=== PATIENT | female | born 1960 | race Caucasian/White ===

== ENCOUNTER 2023-02-11 11:20 | Outpatient (OUT) | payer OTHER, BC, SELFPAY ==
--- NOTE | 2023-02-11 11:23 | MM_ITS ---
Patient: BRITNEY TURNER Exam Date: 02/11/2023 : 1960 Gender:F Ordering : CHENCHO JohnJared ABEL FAMILY N Admission #: [id number] Family : Order #: [id number] CLICK HERE TO VIEW EXAM RADIOLOGY REPORT PROCEDURE: MM TOMOSYNTHESIS SCREENING BI COMPARISON: MG MAMM SCREEN 3D GRAYSON CAD, 02/05/2022. MG MAMM GRAYSON SCRN W CAD DIG, 02/05/2021. MG MAMM GRAYSON SCRN W CAD DIG, 01/06/2020. MG MAMM GRAYSON SCRN W CAD DIG, 01/03/2019. INDICATIONS: Screening Calculator Name NCI Breast Cancer Risk Assessment Tool 5 Year Breast Cancer Risk Not Reported. Lifetime Breast Cancer Risk Not Reported. Personal Breast Cancer No Personal Ovarian Cancer No Treatments None Family Cancers None LOCATION: The [facility] BREAST COMPOSITION: Heterogeneously dense,which may obscure small masses. FINDINGS: DIAGNOSTIC CATEGORY 2--BENIGN FINDING: RIGHT BREAST: No significant suspicious finding. Scattered benign-appearing lymph nodes are present. No significant change has occurred. LEFT BREAST: No significant suspicious finding. No significant change has occurred. RECOMMENDATIONS: ROUTINE MAMMOGRAM AND CLINICAL EVALUATION IN 12 MONTHS. PLEASE NOTE: A NORMAL MAMMOGRAM DOES NOT EXCLUDE THE POSSIBILITY OF BREAST CANCER. A CLINICALLY SUSPICIOUS PALPABLE LUMP SHOULD BE BIOPSIED. Dictated by: Reji Dimas M.D. on 02/12/2023 at 15:41 Approved by: Reji Dimas M.D. on 02/12/2023 at 15:44
== END 2023-02-11 11:21 | disposition home or self-care (01) ==
LOC: MAMMO 11:20
PROVIDERS: PCP Nurse Practitioner Family; Visit Provider Nurse Practitioner Family
DX: Z12.31 Encounter for screening mammogram for malignant neoplasm of breast (principal)
CPT/HCPCS: 77063; 77067

== ENCOUNTER 2024-02-23 11:18 | Outpatient (OUT) | payer OTHER, BC, SELFPAY ==
--- NOTE | 2024-02-23 11:24 | MM_ITS ---
Patient Name: BRITNEY TURNER MR#: [id number] : 1960 Exam Date: 02/23/2024 Ordering Doctor: CHENCHO Galicia RADIOLOGY REPORT PROCEDURE: MM TOMOSYNTHESIS SCREENING BI COMPARISON: MG MAMM SCREEN 3D GRAYSON CAD, 02/05/2022. MM TOMOSYNTHESIS SCREENING BI, 02/11/2023. INDICATIONS: Screening Calculator Name NCI Breast Cancer Risk Assessment Tool 5 Year Breast Cancer Risk Not Reported. Lifetime Breast Cancer Risk Not Reported. Personal Breast Cancer No Personal Ovarian Cancer No Treatments None Family Cancers None LOCATION: [facility] BREAST COMPOSITION: The breasts are heterogeneously dense,which may obscure small masses. FINDINGS: DIAGNOSTIC CATEGORY 2--BENIGN FINDING. NO CHANGE FROM COMPARISON. Scattered benign-appearing nodules are present. Scattered benign-appearing calcifications are present. Scattered benign-appearing lymph nodes are present. RIGHT BREAST: No significant suspicious finding. LEFT BREAST: No significant suspicious finding. RECOMMENDATIONS: ROUTINE MAMMOGRAM AND CLINICAL EVALUATION IN 12 MONTHS. PLEASE NOTE: A NORMAL MAMMOGRAM DOES NOT EXCLUDE THE POSSIBILITY OF BREAST CANCER. A CLINICALLY SUSPICIOUS PALPABLE LUMP SHOULD BE BIOPSIED. Dictated by: Ashvin Mora MD on 02/23/2024 at 14:08 Approved by: Ashvin Mora MD on 02/23/2024 at 14:10
== END 2024-02-23 11:19 | disposition home or self-care (01) ==
LOC: MAMMO 11:19
PROVIDERS: PCP Nurse Practitioner Family; Visit Provider Nurse Practitioner Family
DX: Z12.31 Encounter for screening mammogram for malignant neoplasm of breast (principal)
CPT/HCPCS: 77063; 77067

== ENCOUNTER 2025-02-24 10:44 | Outpatient (OUT) | payer BC, OTHER, SELFPAY ==
--- NOTE | 2025-02-24 10:54 | MM_ITS ---
Patient Name: BRITNEY TURNER MR#: [id number] : 1960 Exam Date: 02/24/2025 Ordering Doctor: CHENCHO Galicia RADIOLOGY REPORT PROCEDURE: MM TOMOSYNTHESIS SCREENING BI COMPARISON: MM TOMOSYNTHESIS SCREENING BI, 02/23/2024. MM TOMOSYNTHESIS SCREENING BI, 02/11/2023. MG MAMM SCREEN 3D GRAYSON CAD, 02/05/2022. MG MAMM GRAYSON SCRN W CAD DIG, 01/03/2019. INDICATIONS: Screening Calculator Name NCI Breast Cancer Risk Assessment Tool 5 Year Breast Cancer Risk Not Reported. Lifetime Breast Cancer Risk Not Reported. Personal Breast Cancer No Personal Ovarian Cancer No Treatments None Family Cancers None LOCATION: [facility] BREAST COMPOSITION: The breasts are heterogeneously dense, which may obscure small masses. FINDINGS: RIGHT BREAST: No significant suspicious finding. LEFT BREAST: No significant suspicious finding. DIAGNOSTIC CATEGORY 1--NEGATIVE. RECOMMENDATIONS: ROUTINE MAMMOGRAM AND CLINICAL EVALUATION IN 12 MONTHS. PLEASE NOTE: A NORMAL MAMMOGRAM DOES NOT EXCLUDE THE POSSIBILITY OF BREAST CANCER. A CLINICALLY SUSPICIOUS PALPABLE LUMP SHOULD BE BIOPSIED. Dictated by: Isaak Mae MD on 02/24/2025 at 13:42 Approved by: Isaak Mae MD on 02/24/2025 at 13:45
--- OUTSIDE RECORDS SUMMARY | 2025-02-24 10:55 | XMS_ITS | CCD ---
Author Organization [facility] Care Team Providers Care Traffic Representative Name Role Phone Deo Dean DO Primary Care Provider DAMON Anguiano Referring UnavailDEO Perez Primary Care Unavailable DAMON JONES Admitting UnavailDAMON Segovia Attending UnavailDEO Perez Primary Care Unavailable Deo Dean Unavailable Nick Matthews Unavailable DR TYRELL DIMAS Consulting Unavailable JERMAINE, DR SAMUEL Attending Unavailable JERMAINE, DR SAMUEL Admitting Unavailable JERMAINE, DR SAMUEL Consulting Unavailable DO Deo Dean Primary Care Provider [facility] Attending Provider DO Deo Dean Primary Care Provider [facility] Attending Provider [phone] [facility] Admitting Unavailable [facility] Attending Unavailable Deo Dean Primary Care Unavailable DO Deo Dean Primary Care Provider [facility] Attending Provider [phone] Quentin Koehler MD Primary Care Provider QUENTIN KOEHLER Primary Care Unavailable QUENTIN KOEHLER Attending Unavailable QUENTIN KOEHLER Attending Unavailable MIRTHA ROMAN Attending Unavailable MIRTHA ROMAN Attending Unavailable MIRTHA ROMAN Attending Unavailable QUENTIN KOEHLER Attending Unavailable MIRTHA ROMAN Attending Unavailable Deo Dean DO Primary Care Unavailab Gi HAND, Tyrone Pandya Attending Unavailab Gi HAND, Tyrone Pandya Attending Unavailab Deo Kelsey DO Primary Care Unavailab Rogerio HAND, Quentin Givens Primary [facility] Unavailab miladis Aguilera MD, Tyrone Pandya Attending Unavailab Deo Kelsey DO Primary Care Unavailab miladis Aguilera MD, Tyrone Pandya Attending Unavailab Deo Kelsey DO [facility] Unavailab miladis Aguilera MD, Tyrone Pandya Attending Unavailab miladis Aguilera MD, Tyrone Pandya Attending Unavailab Rogerio HAND, Karen Primary [facility] Unavailab le Nilson Orantes MD, Tyrone Pandya Attending Unavailab Deo Kelsey DO Primary [facility] Unavailab Rogerio HAND, [facility] Primary [facility] Unavailab le Nilson Orantes MD, Tyrone Pandya Attending Unavailab Deo Kelsey DO Primary [facility] Unavailab le Nilson Orantes MD, Tyrone Pandya Attending Unavailab le Nilson Orantes MD, Tyrone Pandya Attending Unavailab [facility] Nilson Orantes MD, Tyrone Pandya Attending Unavailab Jeronimo Ramsay MD Consulting Unavailable Deo Dean DO [facility] Unavailab le Nilson Orantes MD, Tyrone Pandya Consulting Unavailab le Allergies Allergy Classification Reported Allergen(s) Allergy Type Date of Onset Reaction(s) Facility (20 sources) Aluminum aspirin; Translations: [ASPIRIN] Drug Allergy 8 Anaphylaxis 3D Forms (20 sources) ASA Propensity to adverse reactions anaphylaxis [place] Other (6 sources) NSAIDS (Non-Steroidal Anti-Inflamma; Translations: [NSAIDS (Non-Steroidal Anti-Inflamma] Allergy to substance 8 Swelling of Lip/Tongue/Thr oat [facility] (1 source) Aspirin Drug Allergy 3 [facility] Repository Medications Current Medications Medication Drug Class(es) Dates Sig (Normalized) Sig (Original) acetaminophen 325 mg / oxyCODONE hydrochloride 5 mg oral tablet (3 sources) Opioid Agonist Start: 09-30-2021 End: 10-07-2021 oxyCODONE-acetamin ophen (PERCOCET) 5-325 MG per tablet Indications: Encounter for cosmetic surgery Take 1 tablet by mouth every 6 hours as needed for Pain for up to 7 days. Intended supply: 7 days. Take lowest dose possible to manage pain 28 tablet 0 09/30/2021 10/07/2021 Active Start: 09-30-2021 End: 09-30-2021 oxyCODONE-acetaminophen (PER COCET) 5-325 MG per tablet 2 tablet [id number] 200 actuat albuterol 0.09 mg/actuat metered dose inhaler (20 sources) beta2-Adrenergic Agonist Start: 08-24-2024 take 1 puff(s) by inhalation every four hours for wheezing albuterol HFA 90 mcg/act inhaler Indications: Dyspnea, unspecified type Inhale 1 puff every 4 (four) hours if needed for wheezing or shortness of breath 18 g 3 08/24/2024 Active Start: 02-10-2024 take 1 puff(s) by in halation every four hours as needed Albuterol Sulfate Active 1 PUFF INHALATION Every 4 hours February 10, 2024 12:00am FreeTextSi puff as needed Inhalation every 4 hrs; Note: Source Status: Taking; Refills: 3; Provider: Jermaine Hooker Start: 11-05-2022 take 1 puff(s) by in halation every four hours as needed Albuterol Sulfate HFA 108 (90 Base) MCG/ACT 1 puff as needed Inhalation every 4 hrs Oct, Active Start: 11-05-2022 take 1 puff(s) by in halation every four hours as needed Albuterol Sulfate HFA 108 (90 Base) MCG/ACT 1 puff as needed Inhalation every 4 hrs Oct, Active Start: 11-05-2022 End: 08-24-2024 take 1 puff(s) by mouth every four hours albuterol HFA 90 mcg/act inhaler inhale 1 puff by mouth and INTO THE LUNGS every 4 hours if needed 11/05/2022 08/24/2024 Discontinued (Reorder) albuterol 0.833 mg/ml / ipratropium bromide 0.167 mg/ml inhalation solution (1 source) Anticholinergic, beta2-Adrenergic Agonist Start: 09-30-2021 End: 09-30-2021 ipratropium-albuterol (DUONEB) nebulizer solution 1 ampule {1 (ascorbic acid 7540 MG / polyethylene glycol 3350 10510 MG / potassium chloride 1200 MG / sodium ascorbate 58113 MG / sodium chloride 3200 MG Powder for Oral Solution) / 1 (polyethylene glycol 3350 [id number] MG / potassium chloride 1000 MG / sodium chloride 2000 MG / sodium sulfate 9000 MG Powder for Oral Solution) } Pack [Plenvu] (5 sources) Osmotic Laxative, Vitamin C Start: 10-04-2021 Plenvu 140 GM dose 1 pouch at 4pm, dose 2 pouch A & B at 11pm Orally BID for 1 days BIN:[id number] PCN: [id number] GROUP:[id number] ID:[id number] Sep, Active busPIRone hydrochloride 10 mg oral tablet (15 sources) Start: 11-14-2024 take 1 tablet by mouth in the morning busPIRone (Buspar) 10 MG tablet Indications: Anxiety Take 1 tablet (10 mg) by mouth in the morning and 1 tablet (10 mg) before bedtime. 60 tablet 1 11/14/2024 Active Start: 03-01-2024 take 1 tablet by ravi th in the morning busPIRone (Buspar) 10 MG tablet Indications: Anxiety Take 1 tablet (10 mg) by mouth in the morning and 1 tablet (10 mg) before bedtime. 60 tablet 1 03/01/2024 Active calcium chloride 0.0014 meq/ml / potassium chloride 0.004 meq/ml / sodium chloride 0.103 meq/ml / sodium lactate 0.028 meq/ml injectable solution (1 source) Start: 09-30-2021 lactated ringers infusion cephalexin 500 mg oral capsule (1 source) Cephalosporin Antibacterial Start: 09-30-2021 End: 10-05-2021 take 1 capsule by mouth three times daily, then take 1 capsule by mouth three times daily cephALEXin (KEFLEX) 500 MG capsule Take 1 capsule by mouth 3 times daily for 15 doses Take 1 tablet 3 times a day for 5 days 15 capsule 0 09/30/2021 10/05/2021 Active 1 ml diphenhydrAMINE hydrochloride 50 mg/ml cartridge (1 source) Histamine-1 Receptor Antagonist Start: 09-30-2021 End: 09-30-2021 diphenhydrAMINE (BENADRYL) injection 12.5 mg Fluticasone Furoate 27.5 MCG/SPRAY (6 sources) Start: 06-16-2022 Fluticasone Furoate 27.5 MCG/SPRAY 2 sprays (1 spray in each nostril) Nasally Once a day for 30 day(s) Jun, Active 1 ml HYDROmorphone hydrochloride 1 mg/ml cartridge (1 source) Opioid Agonist Start: 09-30-2021 HYDROmorphone (DILAUDID) injection 0.5 mg labetalol (NORMODYNE;TRANDATE) injection syringe 10 mg (1 source) Start: 09-30-2021 labetalol (NORMODYNE;TRANDATE) injection syringe 10 mg levoFLOXacin 500 mg oral tablet (2 sources) Quinolone Antimicrobial Start: 06-03-2021 take 1 tablet by mouth every twenty-fou r hours Levaquin 500 MG 1 tablet Orally Once a day for 14 days May, Active 10 ml lidocaine hydrochloride 10 mg/ml injection (1 source) Antiarrhythmic, Amide Local Anesthetic Start: 09-30-2021 End: 09-30-2021 lidocaine PF 1 % injection 1 mL meperidine hydrochloride 50 mg/ml injectable solution (1 source) Opioid Agonist Start: 09-30-2021 meperidine (DEMEROL) injection 12.5 mg methylPREDNISolone (20 sources) Corticosteroid Start: 11-28-2024 End: 12-05-2024 methylPREDNISolone (Medrol Dospak) 4 MG tablets Indications: Poison cathy dermatitis Follow schedule on package instructions 21 tablet 11/28/2024 12/05/2024 Active Start: 12-20-2021 Medrol 4 MG as directed Orally Dec, Active Start: 03-31-2018 SOLU-MEDROL 41 - 125 mg Mar, 125 mg Start: 01-10-2013 SOLU-MEDROL 41 - 125 mg Jan, 125 mg 2 ml midazolam 1 mg/ml injection (1 source) Benzodiazepine Start: 09-30-2021 End: 09-30-2021 midazolam PF (VERSED) injection 2 mg 1 ml morphine sulfate 2 mg/ml cartridge (1 source) Opioid Agonist Start: 09-30-2021 morphine (PF) injection 2 mg PARoxetine hydrochloride 20 mg oral tablet (20 sources) Serotonin Reuptake Inhibitor Start: 03-01-2024 End: 08-12-2025 take 1 tablet by mouth in the morning PARoxetine (Paxil) 20 MG tablet Indications: Anxiety Take 1 tablet (20 mg) by mouth in the morning. 90 tablet 3 08/12/2024 08/12/2025 Active Start: 02-10-2024 End: 02-29-2024 take 1 tablet by mouth once daily in the morning Paroxetine Hcl Discontinued 10 MG PO Daily February 10, 2024 12:00am February 29, 2024 12:41pm FreeText[employer] tablet in the morning Orally Once a day; Note: Source Status: Continue; Provider: Jermaine Hooker Start: 02-05-2024 End: 03-01-2024 take 2 tablets by mouth in the morning PARoxetine (Paxil) 10 MG tablet Indications: Anxiety Take 2 tablets (20 mg) by mouth in the morning. 30 tablet 1 02/05/2024 03/01/2024 Discontinued Start: 10-24-2021 take 20 mg by mouth once daily Paroxetine Hcl Active 20 MG PO Daily October 24, 2021 12:00am Start: 07-29-2021 take 1 tablet by ravi th once daily in the morning PARoxetine (PAXIL) 20 MG tablet take 1 tablet by mouth every morning 0 07/29/2021 Active Start: 04-27-2014 take 0.5 tablet by m outh once daily Paxil 20 MG 1/2 tablet Orally Once a day Apr, Active Start: 04-27-2014 End: 10-24-2021 take 1 tablet by mouth once daily in the evening Paroxetine Hcl (Paxil) 10 mg Tablet Discontinued 10 MG PO Every evening April 22, 2018 12:00am October 24, 2021 8:40am 1 ml promethazine hydrochloride 25 mg/ml injection (1 source) Phenothiazine Start: 09-30-2021 promethazine ( PHENERGAN) injection 6.25 mg 5 ml sodium chloride 9 mg/ml injection (6 sources) Start: 09-30-2021 sodium chlorid e flush 0.9 % injection 5-40 mL Start: 09-30-2021 sodium chlorid e flush 0.9 % injection 10 mL Start: 09-30-2021 0.9 % sodium c hloride infusion Start: 09-30-2021 sodium chlorid e flush 0.9 % injection 10 mL SUMAtriptan 100 mg oral tablet (20 sources) Serotonin-1b and Serotonin-1d Receptor Agonist Start: 02-10-2024 End: 03-01-2024 SUMAtriptan (Imitrex) 100 MG tablet 02/10/2024 03/01/2024 Discontinued (Side effects) Start: 04-17-2016 Imitrex 100 mg 1 tablet as needed Orally prn headache PRN Apr, Active Completed/Discontinued Medications Medication Drug Class(es) Dates Sig (Normalized) Sig (Original) aprepitant 40 mg oral capsule (1 source) Substance P/Neurokinin-1 Receptor Antagonist Start: 09-30-2021 End: 09-30-2021 aprepitant (EMEND) 40 MG capsule atorvastatin 40 mg oral tablet (16 sources) HMG-CoA Reductase Inhibitor Start: 07-19-2021 End: 02-29-2024 take 40 mg by mouth once daily Atorvastatin Discontinued 40 MG PO Daily October 24, 2021 12:00am February 29, 2024 12:41pm clopidogrel 75 mg oral tablet (16 sources) P2Y12 Platelet Inhibitor Start: 07-19-2021 End: 02-29-2024 take 75 mg by mouth once daily Clopidogrel Discontinued 75 MG PO Daily October 24, 2021 12:00am February 29, 2024 12:42pm 2 ml famotidine 10 mg/ml injection (1 source) Histamine-2 Receptor Antagonist Start: 09-30-2021 End: 09-30-2021 famotidine (PEPCID) 20 MG/2ML injection fluticasone furoate 0.0275 mg/actuat metered dose nasal spray (17 sources) Corticosteroid Start: 02-10-2024 End: 02-29-2024 take 2 spray(s) nasal route once daily, then take 1 spray(s) nasal route once daily Fluticasone Furoate Discontinued 2 SPRAY INTRANASAL Daily February 10, 2024 12:00am February 29, 2024 12:42pm FreeText[employer] sprays (1 spray in each nostril) Nasally Once a day; Note: Source Status: Taking; Refills: 1; Provider: Jermaine Hooker Start: 09-07-2023 End: 09-06-2024 take 2 spray(s) nasal route once daily fluticasone (Flonase) 50 MCG/ACT nasal spray Indications: Dysfunction of left eustachian tube Administer 2 sprays into each nostril Daily Shake gently. Before first use, prime pump. After use, clean tip and replace cap. 16 g 2 09/07/2023 Active 2 ml ondansetron 2 mg/ml injection (2 sources) Serotonin-3 Receptor Antagonist Start: 09-30-2021 End: 09-30-2021 ondansetron (ZOFRAN) 4 MG/2ML injection Start: 09-30-2021 End: 09-30-2021 ondansetron (ZOFRAN) injecti on 4 mg predniSONE 20 mg oral tablet (1 source) Start: 12-24-2023 End: 02-29-2024 Prednisone Discontinued 20 M G PO Daily December 24, 2023 12:00am February 29, 2024 12:42pm BID x 5 DAYS, QD X 5 DAYS rimegepant 75 mg disintegrat ing oral tablet (20 sources) Start: 02-10-2024 End: 10-25-2024 Rimegepant Sulfate 75 MG tablet dispersible 1 tablet 02/10/2024 10/25/2024 Discontinued (Therapy completed) Start: 11-07-2021 Nurtec 75 MG 1 tablet on the tongue and allow to dissolve Orally for 30 day(s) PRN Oct, Active 72 hr scopolamine 0.0139 mg/hr transdermal system (1 source) Anticholinergic Start: 09-30-2021 End: 09-30-2021 scopolamine (TRANSDERM-SCOP) 1 MG/3DAYS transdermal patch vitamin b6 100 mg oral tablet (2 sources) End: 09-30-2021 take 1 tablet by mouth once daily vitamin B-6 (PYRIDOXINE) 100 MG tablet Take 100 mg by mouth daily 0 09/30/2021 Discontinued (Therapy completed) Problems Active Problems Problem Classification Problem Date Documented Da te Episodic/Chronic Allergic reactions (2 sources) Contact dermatitis due to poison cathy; Translations: [Allergic contact dermatitis due to plants, except food] 11-28-2024 Episodic Anxiety disorders (20 sources) Anxiety; Translations: [Anxiety disorder, unspecified] Onset: 12-16-2021 Resolved: 12-16-2021 Chronic Diabetes mellitus without complication (20 sources) Hyperglycemia; Translations: [Hyperglycemia, unspecified] 02-10-2024 Episodic Diseases of white blood cells (20 sources) Leukopenia; Translations: [Decreased white blood cell count, unspecified] Onset: 05-14-2023 Chronic Disorders of lipid metabolism (20 sources) Hyperlipidemia; Translations: [Hyperlipidemia, unspecified] Onset: 03-01-2024 Chronic Gastrointestinal hemorrhage (14 sources) Hematochezia; Translations: [Melena] Onset: 09-27-2021 Resolved: 09-27-2021 Episodic Headache; including migraine (20 sources) Migraine; Translations: [Migraine, unspecified, not intractable, without status migrainosus] Onset: 02-03-2023 02-03-2023 Chronic Mood disorders (20 sources) Major depressive disorder, single episode, unspecified; Translations: [Depression] Chronic Open wounds of extremities (4 sources) Laceration without foreign body of left little finger without damage to nail, initial encounter; Translations: [Laceration of finger] Onset: 10-18-2024 10-26-2024 Episodic Other ear and sense organ disorders (16 sources) Conductive hearing loss, unilateral, left ear, with unrestricted hearing on the contralateral side; Translations: [Conductive hearing loss, unilateral] Onset: 02-03-2023 02-03-2023 Chronic Other ear and sense organ disorders (1 source) Other specified disorders of left ear Episodic Other injuries and conditions due to external causes (1 source) Laceration - injury Onset: 10-18-2024 Episodic Other nervous system disorders (20 sources) Carpal tunnel syndrome; Translations: [Carpal tunnel syndrome, unspecified upper limb] Onset: 02-03-2023 02-03-2023 Chronic Other nervous system disorders (19 sources) Numbness; Translations: [Anesthesia of skin] Episodic Other nutritional; endocrine; and metabolic disorders (2 sources) Abnormal weight loss; Translations: [Loss of weight] Episodic Other screening for suspected conditions (not mental disorders or infectious disease) (5 sources) Abnormal findings on diagnostic imaging of skull and head, not elsewhere classified; Translations: [Encounter for screening mammogram for malignant neoplasm of breast] Onset: 06-19-2021 Resolved: 06-19-2021 Episodic Other skin disorders (20 sources) Comedone; Translations: [Acne vulgaris] Episodic Other upper respiratory disease (15 sources) Breath smells unpleasant; Translations: [Halitosis] Episodic Other upper respiratory infections (20 sources) Sinusitis; Translations: [Chronic sinusitis, unspecified] Onset: 06-03-2021 Resolved: 06-03-2021 Chronic Otitis media and related conditions (16 sources) Chronic serous otitis media of left ear; Translations: [Chronic serous otitis media, left ear] Onset: 02-03-2023 02-03-2023 Chronic Residual codes; unclassified (15 sources) Procedure related finding; Translations: [Encounter for cosmetic surgery] Episodic Transient cerebral ischemia (18 sources) Transient cerebral ischemia; Translations: [Transient cerebral ischemic attack, unspecified] Onset: 08-26-2021 Resolved: 01-14-2022 Chronic Viral infection (20 sources) Herpes simplex; Translations: [Herpesviral infection, unspecified] Episodic Past or Other Problems Problem Classification Problem Date Documented Date Episodic/Chronic Conditions associated with dizziness or vertigo (1 source) Dizziness and giddiness; Translations: [Dizziness R42] Onset: 05-09-2021 Resolved: 05-09-2021 Episodic Intracranial injury (1 source) Personal history of traumatic brain injury; Translations: [History of concussion Z87.820] Onset: 05-09-2021 Resolved: 05-09-2021 Episodic Mood disorders (12 sources) Mood disorders Onset: 04-07-2024 04-07-2024 Other acquired deformities (16 sources) Finding of nasal deformity; Translations: [Acquired deformity of nose] Onset: 02-03-2023 02-03-2023 Episodic Other connective tissue disease (16 sources) Peripheral muscle fatigue; Translations: [Other symptoms and signs involving the musculoskeletal system] Onset: 05-14-2023 05-14-2023 Episodic Other lower respiratory disease (17 sources) Dyspnea; Translations: [Dyspnea, unspecified] Onset: 05-14-2023 05-14-2023 Episodic Other nervous system disorders (4 sources) Anesthesia of skin; Translations: [Numbness on left side R20.0] Onset: 05-09-2021 Resolved: 08-26-2021 Episodic Other nervous system disorders (16 sources) Paresthesia; Translations: [Paresthesia of skin] Onset: 02-03-2023 02-03-2023 Episodic Other nutritional; endocrine; and metabolic disorders (20 sources) Unintentional weight loss; Translations: [Abnormal weight loss] Onset: 03-01-2024 02-29-2024 Episodic Other nutritional; endocrine; and metabolic disorders (12 sources) Weight loss; Translations: [Abnormal weight loss] Onset: 05-14-2023 05-14-2023 Episodic Other nutritional; endocrine; and metabolic disorders (6 sources) Weight decreased; Translations: [Abnormal weight loss] Onset: 05-14-2023 05-14-2023 Episodic Residual codes; unclassified (3 sources) Patient encounter status; Translations: [Encounter for cosmetic surgery] Episodic Residual codes; unclassified (18 sources) History of hysterectomy for benign disease; Translations: [Acquired absence of both cervix and uterus] Onset: 02-03-2023 02-03-2023 Episodic Results Test Name Value Interpretation Reference Range Facility CBC w/ Diffon 12-29-2024 Erythrocyte distribution width (RBC) [Ratio] 12.2 % Normal 11.6-14.8 [facility] Comment on above: Performed By: #### . Manual Diff #### [place] [address] Hematocrit (Bld) [Volume fraction] 39.1 % Normal 36.0-46.0 [facility] Comment on above: Performed By: #### . Manual Diff #### [place] [address] Hemoglobin (Bld) [Mass/Vol] 13.3 g/dL Normal 12.0-16.0 [facility] Comment on above: Performed By: #### . Manual Diff #### [place] [id number] MCH (RBC) [Entitic mass] 29.9 pg Normal 27.0-35.0 [facility] Comment on above: Performed By: #### . Manual Diff #### [place] [id number] MCHC 34.1 % Normal 31.0-37.0 [facility] Comment on above: Performed By: #### . Manual Diff #### [place] [id number] MCV (RBC) [Entitic vol] 87.7 fL Normal 80.0-100.0 [facility] Comment on above: Performed By: #### . Manual Diff #### [facility] [address] [place] [address] [id number] Platelet 264 x10*3/mcL Normal 150-450 [facility] Comment on above: Performed By: #### . Manual Diff #### [facility] [address] [place] [address] [id number] Platelet mean volume (Bld) [Entitic vol] 7.6 fL Normal 6.7-10.6 [facility] Comment on above: Performed By: #### . Manual Diff #### [facility] [address] [place] [address] 27776 RBC 4.46 x10*6/mcL Normal 3.80-5.20 [facility] Comment on above: Performed By: #### . Manual Diff #### [facility] [address] [place] [address] 70100 WBC 3.2 x10*3/mcL Low 4.5-11.0 [facility] Comment on above: Performed By: #### . Manual Diff #### [facility] [address] [place] [address] [id number] Diff Autoon 12-29-2024 Baso Absolute 0.0 x10*3/mcL Normal 0.0-0.2 [facility] Comment on above: Performed By: #### C BC #### [facility] (UNKNOWN) [address] [place] [address] Basophils/100 WBC (Bld) 0.6 % Normal 0.0-1.5 [facility] Comment on above: Performed By: #### C BC #### [facility] (UNKNOWN) [address] [place] [address] Eos Absolute 0.0 x10*3/mcL Normal 0.0-0.4 [facility] Comment on above: Performed By: #### C BC #### [facility] (UNKNOWN) [address] [place] [address] Eosinophils/100 WBC (Bld) 1.3 % Normal 0.0-5.4 [facility] Comment on above: Performed By: #### C BC #### [facility] (UNKNOWN) [address] [place] [address] Lymph Absolute 1.2 x10*3/mcL Normal 1.0-4.8 [facility] Comment on above: Performed By: #### C BC #### [facility] (UNKNOWN) [address] [place] [address] Lymphocytes/100 WBC (Bld) 36.4 % Normal 27.2-40.8 [facility] Comment on above: Performed By: #### C BC #### [facility] (UNKNOWN) [address] [place] [address] Hart Absolute 0.5 x10*3/mcL Normal 0.1-1.1 [facility] Comment on above: Performed By: #### C BC #### [facility] (UNKNOWN) [address] [place] [address] Monocytes/100 WBC (Bld) 14.5 % High 3.7-11.9 [facility] Comment on above: Performed By: #### C BC #### [facility] (UNKNOWN) [address] [place] [address] Neutro Absolute 1.5 x10*3/mcL Low 1.8-7.7 [facility] Comment on above: Performed By: #### C BC #### [facility] (UNKNOWN) [address] [place] [address] Neutro Auto 47.2 % Normal 47.2-70.8 [facility] Comment on above: Performed By: #### C BC #### [facility] (UNKNOWN) [address] [place] [address] Medical Oncology Office/Clin ic Noteon 12-29-2024 Medical Oncology Office/Clinic Note Chief Complaint Follow-up/reassessment , leukopenia History of Present Illness 64-year-old lady with medical history as below remarkable for history of localized melanoma in the left leg that was resected in 2008. She reports she did not need any further treatment. 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 Patient was referred to our office because of leukopenia. Per chart review we were able to retrieve 3 CBCs as below: 01/07/2020: CBC showed WBC 4.1, hemoglobin 12.7, MCV 87.2, platelets 268, ANC 1.9, ALC 1.6. 12/01/2017: CBC showed WBC 3.5, hemoglobin 12.8, MCV 88.0, platelets 278, ANC 1.4, ALC 1.4. 06/14/2022: CBC showed WBC 2.9, hemoglobin 12, MCV 86.9, platelets 248. No differential on this CBC Patient also showed me CBC from 04/19/2022 which showed WBC: 2.9, hemoglobin 12.3, platelets 241. She also showed me a CBC from 05/17/2022 with WBC 2.9, hemoglobin 11.9, platelets 252. No differential. She reports feeling well. Denies specific complaints. She denies recurrent/recent infection, night sweats, weight loss. She does not drink alcohol. No new medications. She reports she has been on Paxil for many years for anxiety and she weaned herself off this medication around 6 months ago. No history chemotherapy or radiation. Family history remarkable for mother who had breast cancer in her 50s. Patient denies any bleeding problems. She is physically active. She is not aware of any family member who has low white cell count. Interim history: Patient is here today for follow-up Accompanied by his significant other. She is feeling well. No new complaints. No fever or chills. No night sweats or weight loss. No enlarged lymph nodes. No recurrent or recent infections. Review of Systems As above, review of system is otherwise negative Physical Exam Vitals & Measurements T: 37.1 ?C (Temporal Artery) HR: 68 (Peripheral) BP: 135/62 SpO2: 99% HT: 155 cm HT: 155 cm WT: 49.4 kg WT: 49.4 kg (Dosing) BMI: 20.56 ECOG PS: 0 General: alert and oriented pleasant lady; no apparent distress HEENT: NC/AT, sclera clear, extraocular movements intact Resp: Good air entry bilateral, no wheezes Cardio: Normal S1, S2 GI: Soft, nontender Lymphs: No palpable or enlarged lymphadenopathy. Skin: no rashes or bruises on visible skin Neuro: LOGAN, No focal deficit grossly Psych: appropriate affect Assessment/Plan 64-year-old lady with: 1. Leukopenia/neutropenia : Work-up here showed no evidence of nutritional deficiency with normal iron studies, B12, folate, MMA, copper. She has positive JOSEFINA with elevated titer at 1:640. Negative rheumatoid factor. She was seen by rheumatology and was not felt to have any autoimmune disease at this point. Peripheral blood flow cytometry unremarkable. No splenomegaly on ultrasound She eventually had bone marrow biopsy which did not show signs of malignancy. Patient was seen and examined today. Labs were ordered and reviewed including CBC. Continues to have fluctuating leukopenia with borderline neutrophil count. Will continue observation. RTC 6 months Patient knows to call and notify us should he/she have any signs or symptoms of concerns. Patient verbalizes understanding and agreement with this plan. Time Spent with the Patient I have personally spent [] minutes on this date, directly related to today's patient visit, including pre and post visit work, for this date of service. Time listed does not include time spent on separately billable services. Past Medical History Ongoing JOSEFINA positive Leukopenia Historical No qualifying data Past Surgical History Brow lift Appendectomy Partial hysterectomy Allergies aspirin (Anaphylactic reaction) Family History Breast cancer: Mother. Hypertension: Mother. Health Status Family Member(s) Social History Alcohol Never Tobacco Never (less than 100 in lifetime) Use:. Medications busPIRone, 10 mg, Oral, Daily, prn Klor-Con M20 oral tablet, extended release, 20 mEq= 1 tabs, Oral, Daily, Not taking Paxil 20 mg oral tablet, 20 mg= 1 tabs, Oral, Daily potassium chloride 20 mEq oral tablet, extended release, 20 mEq= 1 tabs, Oral, Daily, Not taking Laboratory Data Baso Absolute: 0 x10 Basophil Auto: 0.6 % (12/29/24) Eos Absolute: 0 x10 Eos Auto: 1.3 % (12/29/24) Hct: 39.1 % (12/29/24) Hgb: 13.3 g/dL (12/29/24) Lymph Absolute: 1.2 x10 Lymph Auto: 36.4 % (12/29/24) Hart Absolute: 0.5 x10 Hart Auto: 14.5 % High (12/29/24) Neutro Absolute: 1.5 x10 Neutro Auto: 47.2 % (12/29/24) Platelet: 264 x10 WBC: 3.2 x10 Diagnostic Results Diagnostic Radiology No qualifying data available. Computed Tomography No qualifying data available. Interventional Radiology No qualifying data available. Mammography No qualifying data available. Magnetic Resonance Imaging No qualifying data available. Nuclear Medicine No qualifying data available. Ultrasound No qualifying data available. Electronically Signed by __ (more content not included)... Normal [facility] CBC w/ Diffon 06-28-2024 Erythrocyte distribution width (RBC) [Ratio] 12.6 % Normal 11.6-14.8 [facility] Comment on above: Performed By: #### C BC #### [facility] (UNKNOWN) [address] [place] [address] Hematocrit (Bld) [Volume fraction] 36.9 % Normal 36.0-46.0 [facility] Comment on above: Performed By: #### C BC #### [facility] (UNKNOWN) [address] [place] [address] Hemoglobin (Bld) [Mass/Vol] 12.5 g/dL Normal 12.0-16.0 [facility] Comment on above: Performed By: #### C BC #### [facility] (UNKNOWN) [address] [place] [address] MCH (RBC) [Entitic mass] 30.4 pg Normal 27.0-35.0 [facility] Comment on above: Performed By: #### C BC #### [facility] (UNKNOWN) [address] [place] [address] MCHC 33.9 % Normal 31.0-37.0 [facility] Comment on above: Performed By: #### C BC #### [facility] (UNKNOWN) [address] [place] [address] MCV (RBC) [Entitic vol] 89.8 fL Normal 80.0-100.0 [facility] Comment on above: Performed By: #### C BC #### [facility] (UNKNOWN) [address] [place] [address] Platelet 264 x10*3/mcL Normal 150-450 [facility] Comment on above: Performed By: #### C BC #### [facility] ([facility]KNOWN) [address] [place] [address] Platelet mean volume (Bld) [Entitic vol] 7.6 fL Normal 6.7-10.6 [facility] Comment on above: Performed By: #### C BC #### [facility] ([facility]KNOWN) [address] [place] [address] RBC 4.11 x10*6/mcL Normal 3.80-5.20 [facility] Comment on above: Performed By: #### C BC #### [facility] ([facility]KNOWN) [address] [place] [address] WBC 4.4 x10*3/mcL Low 4.5-11.0 [facility] Comment on above: Performed By: #### C BC #### [facility] (UNKNOWN) [address] [place] [address] Diff Autoon 06-28-2024 Baso Absolute 0.0 x10*3/mcL Normal 0.0-0.2 [facility] Comment on above: Performed By: #### C BC #### [facility] (UNKNOWN) [address] [place] [address] Basophils/100 WBC (Bld) 0.4 % Normal 0.0-1.5 [facility] Comment on above: Performed By: #### C BC #### [facility] (UNKNOWN) [address] [place] [address] Eos Absolute 0.1 x10*3/mcL Normal 0.0-0.4 [facility] Comment on above: Performed By: #### C BC #### [facility] ([facility]KNOWN) [address] [place] [address] Eosinophils/100 WBC (Bld) 1.2 % Normal 0.0-5.4 [facility] Comment on above: Performed By: #### C BC #### [facility] ([facility]KNOWN) [address] [place] [address] Lymph Absolute 1.6 x10*3/mcL Normal 1.0-4.8 [facility] Comment on above: Performed By: #### C BC #### [facility] (UNKNOWN) [address] [place] [address] Lymphocytes/100 WBC (Bld) 37.1 % Normal 27.2-40.8 [facility] Comment on above: Performed By: #### C BC #### [facility] ([facility]KNOWN) [address] [place] [address] Hart Absolute 0.5 x10*3/mcL Normal 0.1-1.1 [facility] Comment on above: Performed By: #### C BC #### [facility] (UNKNOWN) [address] [place] [address] Monocytes/100 WBC (Bld) 10.5 % Normal 3.7-11.9 [facility] Comment on above: Performed By: #### C BC #### [facility] (UNKNOWN) [address] [place] [address] Neutro Absolute 2.2 x10*3/mcL Normal 1.8-7.7 [facility] Comment on above: Performed By: #### C BC #### [facility] (UNKNOWN) [address] [place] [address] Neutro Auto 50.8 % Normal 47.2-70.8 [facility] Comment on above: Performed By: #### C BC #### [facility] (UNKNOWN) [address] [place] [address] Medical Oncology Office/Clin ic Noteon 06-28-2024 Medical Oncology Office/Clinic Note Chief Complaint Follow-up/reassessment , leukopenia History of Present Illness 63-year-old lady with medical history as below remarkable for history of localized melanoma in the left leg that was resected in 2008. She reports she did not need any further treatment. 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 Patient was referred to our office because of leukopenia. Per chart review we were able to retrieve 3 CBCs as below: 01/07/2020: CBC showed WBC 4.1, hemoglobin 12.7, MCV 87.2, platelets 268, ANC 1.9, ALC 1.6. 12/01/2017: CBC showed WBC 3.5, hemoglobin 12.8, MCV 88.0, platelets 278, ANC 1.4, ALC 1.4. 06/14/2022: CBC showed WBC 2.9, hemoglobin 12, MCV 86.9, platelets 248. No differential on this CBC Patient also showed me CBC from 04/19/2022 which showed WBC: 2.9, hemoglobin 12.3, platelets 241. She also showed me a CBC from 05/17/2022 with WBC 2.9, hemoglobin 11.9, platelets 252. No differential. She reports feeling well. Denies specific complaints. She denies recurrent/recent infection, night sweats, weight loss. She does not drink alcohol. No new medications. She reports she has been on Paxil for many years for anxiety and she weaned herself off this medication around 6 months ago. No history chemotherapy or radiation. Family history remarkable for mother who had breast cancer in her 50s. Patient denies any bleeding problems. She is physically active. She is not aware of any family member who has low white cell count. Interim history: Patient is here today for follow-up. She underwent bone marrow biopsy. 1. Normocellular bone marrow with slightly decreased but morphologically unremarkable trilineage hematopoiesis. CBC today largely unremarkable. 2. No diagnostic morphologic features of involvement by a myelodysplastic syndrome or other hematologic neoplasm. See comment. The flow cytometry study shows subtle atypical immunophenotypic features which is of doubtful clinical significance. Karyotype was unremarkable. [facility] discontinued the FISH testing since the karyotype was normal according to their pathway protocol. She is overall feeling well. Tolerated bone marrow biopsy well. No new complaints. She is accompanied by her sister today. Review of Systems As above, review of system is otherwise negative Physical Exam Vitals & Measurements T: 36 ?C (Temporal Artery) HR: 78 (Peripheral) BP: 122/80 SpO2: 97% HT: 155 cm HT: 155 cm WT: 50.6 kg (Dosing) WT: 50.6 kg WT: 50.6 kg (Dosing) BMI: 21.06 ECOG PS: 0 General: alert and oriented pleasant lady; no apparent distress HEENT: NC/AT, sclera clear, extraocular movements intact Resp: Good air entry bilateral, no wheezes Cardio: Normal S1, S2 GI: Soft, nontender Skin: no rashes or bruises on visible skin Neuro: LOGAN, No focal deficit grossly Psych: appropriate affect Assessment/Plan 62-year-old lady with what appears to be chronic fluctuating leukopenia. She has normal hemoglobin and platelet counts. Patient is asymptomatic. Work-up here showed no evidence of nutritional deficiency with normal iron studies, B12, folate, MMA, copper. She has positive JOSEFINA with elevated titer at 1:640. Negative rheumatoid factor. She was seen by rheumatology and was not felt to have any autoimmune disease at this point. Peripheral blood flow cytometry unremarkable. No splenomegaly on ultrasound She eventually had bone marrow biopsy which did not show signs of malignancy. Patient was seen today. Bone marrow biopsy was reviewed. We discussed the results of the bone marrow. No evidence malignant process was identified. CBC today largely unremarkable. RTC 6 months Patient knows to call and notify us should he/she have any signs or symptoms of concerns. Patient verbalizes understanding and agreement with this plan. Time Spent with the Patient I have personally spent [20] minutes on this date, directly related to today's patient visit, including pre and post visit work, for this date of service. Time listed does not include time spent on separately billable services. Past Medical History Ongoing JOSEFINA positive Leukopenia Historical No qualifying data Past Surgical History Brow lift Appendectomy Partial hysterectomy Allergies aspirin (Anaphylactic reaction) Family History Breast cancer: Mother. Hypertension: Mother. Health Status Family Member(s) Social History Alcohol Never Tobacco Never (less than 100 in lifetime) Use:. Medications busPIRone, 10 mg, Oral, Daily, prn Klor-Con M20 oral tablet, extended release, 20 mEq= 1 tabs, Oral, Daily, Not taking Paxil 20 mg oral tablet, 20 mg= 1 tabs, Oral, Daily potassium chloride 20 mEq oral tablet, extended release, 20 mEq= 1 tabs, Oral, Daily, Not taking Laboratory Data Baso Absolute: 0 x10 Basophil Auto: 0.4 % (06/28/24) Eos Absolute: 0.1 x10 Eos Auto: 1.2 % (06/28/24) Hct: 36.9 % (06/28/24) Hgb: 12.5 g/dL (06/28/24) Lymph Absolute: 1.6 x10 Lymph Auto: 37.1 % (06/28/24) Hart Ab (more content not included)... Normal [facility] Chrom Hem BM-Mapleon 06-14-20 24 Chr Hem Addl Info [facility] Not Reported Normal [facility] Comment on above: Performed By: #### C hromosomes, Hematologic, Bone Marrow-Ma #### [facility] [address] [place] [address] Chr Hem Band Mthd [facility] See Footnote Normal [facility] Comment on above: Result Comment: Band Resolution: 400-549 Stain Name Cells Analyzed Cells Karyograms Counted Prepared GTL 20 0 2 Total 20 0 2 Arriaga to Stain Name: GTL=G-banding; QFQ=Q-banding; DAPI=DAPI-staining; CBL=C-banding; AGNOR=Silver-staining; NON=Non-banded The sum of Cells Analyzed and Cells Counted equals the total cells examined. Performed By: #### C hromosomes, Hematologic, Bone Marrow-Ma #### [facility] [address] [place] [address] Chr Hem Intrp [facility] See Footnote Normal B [facility] Comment on above: Result Comment: No c lonal abnormality was apparent. Since this conventional chromosome study was successful, MDS, Diag FISH was cancelled per lab protocol (Abiodun R et al., AJCP, 146:86-94, 2016; [facility] MDS Algorithm: [email or web address]). This test was ordered in the context of a [facility] pathology consultation/case (#[id number]), and this result should be interpreted within the context of the pathology consultation/report. Performed By: #### C hromosomes, Hematologic, Bone Marrow-Ma #### [facility] [address] [place] [address] Chr Hem Method [facility] SEE BELOW Normal [facility] Comment on above: Result Comment: RESU LT: Culture without mitogens Performed By: #### C hromosomes, Hematologic, Bone Marrow-Ma #### [facility] [address] [place] [address] Chr Hem Ref [facility] leukopenia Normal [facility] Comment on above: Performed By: #### C hromosomes, Hematologic, Bone Marrow-Ma #### [facility] [address] [place] [address] Chr Hem Released by [facility] SEE BELOW Normal [facility] Comment on above: Result Comment: RESU LT: Alen Tejada M.D. Test Performed by: [place] [id number] Network Technician: Benedicto Joy Ph.D.; CLIA# [id number] Performed By: #### C hromosomes, Hematologic, Bone Marrow-Ma #### [facility] [address] [place] [address] Chr Hem Res Summary [facility] Normal Normal [facility] Comment on above: Performed By: #### C hromosomes, Hematologic, Bone Marrow-Ma #### [facility] [address] [place] [address] Chr Hem Rslt [facility] 46,XX[20] Normal [facility] Comment on above: Performed By: #### C hromosomes, Hematologic, Bone Marrow-Ma #### [facility] [employer] [address] [place] [address] Chr Hem Spec [facility] Bone Marrow Normal [facility] Comment on above: Performed By: #### C hromosomes, Hematologic, Bone Marrow-Ma #### [facility] [employer] [address] [place] [address] Chr Hem Src [facility] Not Reported Normal [facility] Comment on above: Performed By: #### C hromosomes, Hematologic, Bone Marrow-Ma #### [address] [address] Myelodysplastic Syndrome by Kaylen BERGERON 06-04-2024 Final Dx (MYEFL), Bone Marrow-Maple See Footnote Normal [facility] Comment on above: Result Comment: Bone marrow, flow cytometric immunophenotyping: No monotypic B-cells or increase in blasts identified. An atypical pattern of myeloid maturation is present. See comment. Comment: The significance of this flow cytometry finding is uncertain. Similar patterns have been observed in clonal myeloid processes as well as in reactive conditions. Correlation of these flow cytometry results with the bone marrow aspirate and biopsy findings, clinical history and other laboratory features is required for a definitive diagnosis. If desired, we can provide diagnostic services as part of a hematopathology consultation. Please contact the signing pathologist at if you have further questions regarding these analyses. Reviewed by: Jenni Ravi M.D., Ph.D. Performed By: #### C [id number] #### [address] [address] MDS Panel Bone Marrow-Maple Performed Normal [facility] Comment on above: Performed By: #### C [id number] #### [address] [address] Micro Desc (MYEFL), Bone Marrow-Maple See Footnote Normal [facility] Comment on above: Result Comment: A Wr xbmx-Insyav-hkqxxhm slide prepared from the flow cytometry specimen is examined. The specimen contains maturing hematopoietic precursors. No morphologic features of acute leukemia, lymphoma or a plasma cell proliferative disorder are identified. ADDITIONAL INFORMATION This test was developed using an analyte specific reagent. Its performance characteristics were determined by [facility] in a manner consistent with CLIA requirements. This test has not been cleared or approved by the U.S. Food and Drug Administration. Test Performed by: [address] [address] Network Technician: Benedicto Joy Ph.D.; CLIA# [id number] Performed By: #### C [id number] #### [facility] [address] [place] [address] Special Studies (MYEFL) Bone Marrow-Maple See Footnote Normal [facility] Comment on above: Result Comment: %Lym phs: 32% Results: Blasts: Not increased by CD45/side scatter and CD34. Myeloid maturation: HLA-DR/CD13 pattern on blasts: Abnormal CD13/CD16 pattern on maturing granulocytes: Normal CD2/CD7/CD56 expression on blasts: Normal (no expression) Additional markers tested: CD15, CD33, CD36, CD38, CD64, CD117. B-cells: No monotypic; normal expression pattern of CD19, CD10, surface kappa and lambda. T-cells/NK-cells: No aberrant phenotype by CD3 and CD16. Quality assessment: Specimen received within validated guidelines. Performed By: #### C [id number] #### [facility] [address] [place] [address] .Check Order for RFLX Bill O NLYon 06-02-2024 Order Checked for RFLX Bill Only? Yes Normal [facility] Comment on above: Performed By: #### C BC #### [facility] (UNKNOWN) [address] [place] [address] Addendum Reporton 06-02-2024 Addendum Report Missing Attachment Chartable Reference Lab Reports Can be viewed in source system ADD Pathologist Requested Consult Comment by Dr. Tavo Parker: The above consultation report was reviewed. I essentially concur with the diagnosis given. Addendum Discussion [facility], #[id number] Date: 06/14/2024 Final Diagnosis: Peripheral blood, bone marrow aspirate, biopsy and clot sections ([id number]; 06/02/2024): 1. Normocellular bone marrow with slightly decreased but morphologically unremarkable trilineage hematopoiesis. 2. No diagnostic morphologic features of involvement by a myelodysplastic syndrome or other hematologic neoplasm. See comment. COMMENT The flow cytometry study shows subtle atypical immunophenotypic features which is of doubtful clinical significance. Correlation with the clinical findings, history, and pertinent laboratory studies, including pending cytogenetic and FISH analysis, is recommended. MICROSCOPIC DESCRIPTION Peripheral Blood: By report--CBC (dated 06/02/2024): Hgb 12.5 g/dL; RBC 4.07 x 10(12)/L; MCV 90.3 fL; WBC 3.8 x 10 (9)/L; PLT 249 x 10(9)/L. Peripheral blood WBC differential (%): Neutrophils 54; lymphocytes 38; monocytes 5; eosinophils 2; metamyelocytes 1. Peripheral Smear: .No cytologic abnormalities. Bone Marrow Aspirate/Touch Imprint/Biopsy/Clot: Bone marrow differential (500-cell/touch preparation): Neutrophils (segs and bands) 47; metamyelocytes 7; myelocytes 17; eosinophils and precursors 1; normoblasts 20; monocytes 2; lymphocytes 6. Aspirate/Touch Imprint quality: Cellular. Biopsy and Clot quality: The biopsy is adequate. The clot contains occasional small spicules. M:E ratio: 4:1. Cellularity: Normal, 30%. Erythroid precursors: Normal quantity. Normal morphology. Myeloid precursors: Normal quantity. Normal morphology. No increase in blasts. Megakaryocytes: Normal quantity. Normal morphology. No clusters. Lymphocytes: No abnormal infiltrates. Plasma cells: Not increased. ANCILLARY STUDIES Iron stain, bone marrow aspirate and clot, submitted slides: Storage iron is present. No ring sideroblasts seen. Reticulin stain, bone marrow biopsy, submitted slides: No increase in reticulin fibrosis. Immunohistochemistry, bone marrow biopsy, submitted slides, antibodies to CD3, CD5, CD20, CD34, CD138: There are no abnormal infiltrates of CD3-positive T-cells or ER90-rjuxsrpm B-cells. The B-cells do not express CD5. IB89-dhnzdzxy blasts are not increased (<5%). EJ339-jucgnjtx plasma cells number <5%. Flow cytometric immunophenotyping, bone marrow aspirate, performed at [facility] in [place], [place] ([id number]; 06/02/2024): Blasts: Not increased by CD45/side scatter and CD34. Myeloid maturation: HLA-DR/CD13 pattern on blasts: Abnormal CD13/CD16 pattern on maturing granulocytes: Normal CD2/CD7/CD56 expression on blasts: Normal (no expression) Additional markers tested: CD15, CD33, CD36, CD38, CD64, CD117. B-cells: No monotypic; normal expression pattern of CD19, CD10, surface kappa and lambda. T-cells/NK-cells: No aberrant phenotype by CD3 and CD16. Cytogenetic analysis, bone marrow aspirate, performed at [facility] in [place], [place] ([id number]; 06/02/2024): Pending at time of report; results will be reported separately. FISH analysis for MDSDF, bone marrow aspirate, performed at [facility] in [place], [place] ([id number]; 06/02/2024): Pending at time of report; results will be reported separately. A comprehensive consult with review of records that included clinical notes and laboratory results was performed to assist in the diagnostic assessment of the case. [id number] ONAL T-[id number] ONAL T-[id number] ONAL [id number] IONAL P3-03022CYUQOPZTAVNIZT IONAL M-08744ZTSLIJHGHLWVSRW ONAL P3-64653HXORMFMXXQLIYF IONAL T-[id number] ONAL P3-15517WOZVVLGLOSSSOX IONAL T-[id number] ONAL D6-67673INYEECOPWPPFPC IONAL M-56437BXSXWZOTLTJTBLX ONAL M-45861RWHCFIDALXBHHIU ONAL P1-5R314JAQEAMGOGPNUAN IONAL M-64422ZAPDBBNHLIJGSVD ONAL P3-94828OHKSEORSXSGWJM IONAL P2-78721OLENHZSXUQFWLL IONAL Tavo Parker MD PhD (Electronically signed by) Verified: 06/14/24 16:[address] [facility] Comment on above: Performed By: #### A R #### [facility] (DEFAULT) [address] [place] [address] Bone Marrow Reporton 024 Bone Marrow Report Missing Attachment Chartable Reference Lab Reports Can be viewed in source system Clinical Information Preoperative Diagnosis: Leukopenia Postoperative Diagnosis: Special Studies Requested: _ Flow Cytometry Performed: Yes Chromosome Analysis Performed: Yes FISH BCR ABL: _ FISH CLL: _ FISH Mantle Cell: _ FISH (Plasma Cell Proliferative Disorder) PCPD: _ Peripheral Blood CBC with Differential - refer to Pathologist: BM Specimen A Left Iliac crest bone marrow biopsy, CLOT B Left Iliac crest bone marrow biopsy, CORE C Left Iliac crest bone marrow biopsy, SMEARS D Left Iliac crest bone marrow biopsy, TOUCH PREP BM Gross Part A: Bone marrow clot measures 3.4 x 1.0 x 0.7 cm and is placed in Cassette A1- A2. Part B: Bone core biopsy is in 1 fragment(s) measuring 1.5 cm in length and 0.1 cm in diameter. Submitted in Cassette B1 after decalcification. Part C: Received are 10 bone marrow aspirate smear(s) prepared at the time of the procedure. Part D: Received are 5 bone marrow touch prep(s) prepared at the time of the procedure. Stained with Giemsa are 2 bone marrow aspirate smears and 2 bone marrow touch preps. Stained with Iron are 2 bone marrow aspirate smears and the clot sections. A reticulum stain is performed on B1. The undersigned Pathologist deems the Gross Description satisfactory and thus correlates with the Microscopic Description. BM Micro Parts A-D: Bone marrow core biopsy: Adequate. Bone marrow touch imprint: Adequate. Bone marrow aspirate: Suboptimal, hemodilute specimen. Bone marrow clot section: Suboptimal, composed almost entirely of blood. Peripheral blood smear finding: No significant pathologic change. Procedure Event Code Result Reference Range Clinical Date: 06/02/24 10:17 EST CBC w/ Diff for BM WBC 3.8 x10 CBC w/ Diff for BM RBC 4.07 x10 CBC w/ Diff for BM Hgb 12.5 g/dL 12.0 - 16.0 CBC w/ Diff for BM Hct 36.8 % 36.0 - 46.0 CBC w/ Diff for BM MCH 30.8 pg 27.0 - 35.0 CBC w/ Diff for BM MCHC 34.0 % 31.0 - 37.0 CBC w/ Diff for BM MCV 90.3 fL 80.0 - 100.0 CBC w/ Diff for BM Mean Platelet Volume 7.8 fL 6.7 - 10.6 CBC w/ Diff for BM Platelet 249 x10 Procedure Event Code Result Reference Range Clinical Date: 06/02/24 10:17 EST Diff Man Band Man 1 % 0 - 5 Diff Man Basophil Man 0 % 0 - 3 Diff Man Eos Man 2 % 0 - 7 Diff Man Lymph Man 31 % 14 - 42 Diff Man Monocyte Man 11 % 1 - 11 Diff Man Platelet estimate Adequate Diff Man RBC Morph Normal Diff Man Segs Man 55 % 49 - 79 Procedure Event Code Result Reference Range Clinical Date: 06/02/24 10:17 EST Diff Auto Neutro Auto 52.0 % 47.2 - 70.8 Diff Auto Lymph Auto 35.3 % 27.2 - 40.8 Diff Auto Hart Auto 10.5 % 3.7 - 11.9 Diff Auto Eos Auto 1.6 % 0.0 - 5.4 Diff Auto Basophil Auto 0.6 % 0.0 - 1.5 Diff Auto Neutro Absolute 2.0 x10 Diff Auto Lymph Absolute 1.3 x10 Diff Auto Hart Absolute 0.4 x10 Diff Auto Eos Absolute 0.1 x10 Diff Auto Baso Absolute 0.0 x10 Cellularity (Fat:Cell ratio): The bone marrow is normocellular for the patient's age, with cellularity of 30%. Erythropoiesis: Active, maturing. Granulopoiesis: Active, maturing. Megakaryopoiesis: Megakaryocytes are present and show normal morphology. Myeloid to erythroid ratio (M:E ratio): Cannot be reliably evaluated due to hemodilute aspirate smear. It is estimated to be within normal limits (3:1). Lymphocytes/Plasma cells: There are no significantly increased lymphocytes present, best seen on immunostains for CD3, CD5, CD20 which show predominantly scattered CD3 and CD5 positive T-cells and rare CD20 positive B-cells. Blasts are not increased, best seen on immunostain for CD34. Plasma cells are also not increased, best seen on immunostain for CD138. All positive and negative controls show appropriate reactivity. Reticulin: Reticulin is slightly increased. Reticulin stain was performed on block B1. Positive controls show appropriate reactivity. Iron: Iron stores are markedly decreased, almost absent. Iron stain was performed on the aspirate smear slides and blocks A1 and A2. Positive controls show appropriate reactivity. Flow cytometry results: Flow cytometry performed at [facility] on 06/04/24 reveals no monotypic B-cells or increase in blasts identified. An atypical pattern of myeloid maturation is present. See comment. Flow Comment: The significance of this flow cytometry finding is uncertain. Similar patterns have been observed in clonal myeloid processes as well as in reactive conditions. Comments: The bone marrow core biopsy, clot section and aspirate smear show a normocellular bone marrow for the patient's age, with active, maturing trilinear hematopoiesis. There is no evidence of bone marrow involvement by acute leukemia, malignant lymphoma or metastatic disease. No significantly myelodysplastic changes are noted. However, the exact evaluation of cellular morphology is precluded due t (more content not included)... Normal [facility] Comment on above: Performed By: #### B MR #### [facility] (DEFAULT) [address] [place], [place] [id number] CBC w/ Diff for BMon 024 Erythrocyte distribution width (RBC) [Ratio] 12.6 % Normal 11.6-14.8 [facility] Comment on above: Performed By: #### C MARBINF #### [address] [address] Hematocrit (Bld) [Volume fraction] 36.8 % Normal 36.0-46.0 [facility] Comment on above: Performed By: #### C MARBINF #### [place] [id number] Hemoglobin (Bld) [Mass/Vol] 12.5 g/dL Normal 12.0-16.0 [facility] Comment on above: Performed By: #### C MARBINF #### [address] [address] MCH (RBC) [Entitic mass] 30.8 pg Normal 27.0-35.0 [facility] Comment on above: Performed By: #### C MARBINF #### [place] [id number] MCHC 34.0 % Normal 31.0-37.0 [facility] Comment on above: Performed By: #### C MARBINF #### [address] [address] MCV (RBC) [Entitic vol] 90.3 fL Normal 80.0-100.0 [facility] Comment on above: Performed By: #### C MARBINF #### [address] [address] Platelet 249 x10*3/mcL Normal 150-450 [facility] Comment on above: Performed By: #### C MARBINF #### [address] [address] Platelet mean volume (Bld) [Entitic vol] 7.8 fL Normal 6.7-10.6 [facility] Comment on above: Performed By: #### C RADHA #### [address] [address] RBC 4.07 x10*6/mcL Normal 3.80-5.20 [facility] Comment on above: Performed By: #### C MARBINF #### [address] [address] WBC 3.8 x10*3/mcL Low 4.5-11.0 [facility] Comment on above: Performed By: #### C RADHA #### [address] [address] Diff Autoon 06-02-2024 Baso Absolute 0.0 x10*3/mcL Normal 0.0-0.2 [facility] Comment on above: Performed By: #### . Automated Diff #### [address] [address] Basophils/100 WBC (Bld) 0.6 % Normal 0.0-1.5 [facility] Comment on above: Performed By: #### . Automated Diff #### [address] [address] Eos Absolute 0.1 x10*3/mcL Normal 0.0-0.4 [facility] Comment on above: Performed By: #### . Automated Diff #### [address] [address] Eosinophils/100 WBC (Bld) 1.6 % Normal 0.0-5.4 [facility] Comment on above: Performed By: #### . Automated Diff #### [address] [address] Lymph Absolute 1.3 x10*3/mcL Normal 1.0-4.8 [facility] Comment on above: Performed By: #### . Automated Diff #### [address] [address] Lymphocytes/100 WBC (Bld) 35.3 % Normal 27.2-40.8 [facility] Comment on above: Performed By: #### . Automated Diff #### [address] [address] Hart Absolute 0.4 x10*3/mcL Normal 0.1-1.1 [facility] Comment on above: Performed By: #### . Automated Diff #### [address] [address] Monocytes/100 WBC (Bld) 10.5 % Normal 3.7-11.9 [facility] Comment on above: Performed By: #### . Automated Diff #### [address] [address] Neutro Absolute 2.0 x10*3/mcL Normal 1.8-7.7 [facility] Comment on above: Performed By: #### . Automated Diff #### [address] [address] Neutro Auto 52.0 % Normal 47.2-70.8 [facility] Comment on above: Performed By: #### . Automated Diff #### [address] [address] Diff [facility] 06-02-2024 Band form neutrophils/100 WBC (Bld) 1 % Normal 0-5 [facility] Comment on above: Performed By: #### . Manual Diff #### [address] [address] Basophils/100 WBC (Bld) 0 % Normal 0-3 [facility] Comment on above: Performed By: #### . Manual Diff #### [address] [address] Eosinophils/100 WBC (Bld) 2 % Normal 0-7 [facility] Comment on above: Performed By: #### . Manual Diff #### [address] [address] Lymphocytes/100 WBC (Bld) 31 % Normal 14-42 [facility] Comment on above: Performed By: #### . Manual Diff #### [address] [address] Monocytes/100 WBC (Bld) 11 % Normal 1-11 [facility] Comment on above: Performed By: #### . Manual Diff #### [facility] [address] [place] [address] Platelet estimate Adequate Normal [facility] Comment on above: Performed By: #### . Manual Diff #### [address] [address] RBC morphology finding Nom (Bld) Normal Normal [facility] Comment on above: Performed By: #### . Manual Diff #### [address] [address] Segs Man 55 % Normal 49-79 [facility] Comment on above: Performed By: #### . Manual Diff #### [address] [address] OR Trackon 06-02-2024 [place] # [address] [facility] Comment on above: Performed By: #### . Manual Diff #### [place] [id number] Specimens Received From BV Anesthesia Normal [facility] Comment on above: Performed By: #### . Manual Diff #### [address] [address] Pathology Assist Bone Marrow on 06-02-2024 Pathology Assist Bone Marrow Complete Normal [facility] Comment on above: Performed By: #### C BC #### [facility] (UNKNOWN) [address] [place] [address] CBC w/ Diffon 05-24-2024 Erythrocyte distribution width (RBC) [Ratio] 13.0 % Normal 11.6-14.8 [facility] Comment on above: Performed By: #### C BC #### [facility] (UNKNOWN) [address] [place] [address] Hematocrit (Bld) [Volume fraction] 37.8 % Normal 36.0-46.0 [facility] Comment on above: Performed By: #### C BC #### [facility] (UNKNOWN) [address] [place] [address] Hemoglobin (Bld) [Mass/Vol] 12.7 g/dL Normal 12.0-16.0 [facility] Comment on above: Performed By: #### C BC #### [facility] (UNKNOWN) [address] [place] [address] MCH (RBC) [Entitic mass] 30.1 pg Normal 27.0-35.0 [facility] Comment on above: Performed By: #### C BC #### [facility] (UNKNOWN) [address] [place] [address] MCHC 33.5 % Normal 31.0-37.0 [facility] Comment on above: Performed By: #### C BC #### [facility] (UNKNOWN) [address] [place] [address] MCV (RBC) [Entitic vol] 90.1 fL Normal 80.0-100.0 [facility] Comment on above: Performed By: #### C BC #### [facility] (UNKNOWN) [address] [place] [address] Platelet 220 x10*3/mcL Normal 150-450 [facility] Comment on above: Performed By: #### C BC #### [facility] (UNKNOWN) [address] [place] [address] Platelet mean volume (Bld) [Entitic vol] 7.4 fL Normal 6.7-10.6 [facility] Comment on above: Performed By: #### C BC #### [facility] (UNKNOWN) [address] [place] [address] RBC 4.20 x10*6/mcL Normal 3.80-5.20 [facility] Comment on above: Performed By: #### C BC #### [facility] (UNKNOWN) [address] [place] [address] WBC 2.2 x10*3/mcL Low 4.5-11.0 [facility] Comment on above: Performed By: #### C BC #### [facility] (UNKNOWN) [address] [place] [address] Diff Autoon 05-24-2024 Baso Absolute 0.0 x10*3/mcL Normal 0.0-0.2 [facility] Comment on above: Performed By: #### . Manual Diff #### [address] [address] Basophils/100 WBC (Bld) 0.4 % Normal 0.0-1.5 [facility] Comment on above: Performed By: #### . Manual Diff #### [address] [address] Eos Absolute 0.0 x10*3/mcL Normal 0.0-0.4 [facility] Comment on above: Performed By: #### . Manual Diff #### [address] [address] Eosinophils/100 WBC (Bld) 2.0 % Normal 0.0-5.4 [facility] Comment on above: Performed By: #### . Manual Diff #### [address] [address] Lymph Absolute 0.9 x10*3/mcL Low 1.0-4.8 [facility] Comment on above: Performed By: #### . Manual Diff #### [address] [address] Lymphocytes/100 WBC (Bld) 42.1 % High 27.2-40.8 [facility] Comment on above: Performed By: #### . Manual Diff #### [address] [address] Hart Absolute 0.4 x10*3/mcL Normal 0.1-1.1 [facility] Comment on above: Performed By: #### . Manual Diff #### [address] [address] Monocytes/100 WBC (Bld) 16.5 % High 3.7-11.9 [facility] Comment on above: Performed By: #### . Manual Diff #### [facility] [address] [place] [address] Neutro Absolute 0.9 x10*3/mcL Low 1.8-7.7 [facility] Comment on above: Performed By: #### . Manual Diff #### [facility] [address] [place] [address] Neutro Auto 39.0 % Low 47.2-70.8 [facility] Comment on above: Performed By: #### . Manual Diff #### [facility] [address] [place] [address] CBC w/ Diffon 04-05-2024 Erythrocyte distribution width (RBC) [Ratio] 12.6 % Normal 11.6-14.8 [facility] Comment on above: Performed By: #### C BC #### [facility] (UNKNOWN) [address] [place] [address] Hematocrit (Bld) [Volume fraction] 38.4 % Normal 36.0-46.0 [facility] Comment on above: Performed By: #### C BC #### [facility] (UNKNOWN) [address] [place] [address] Hemoglobin (Bld) [Mass/Vol] 12.8 g/dL Normal 12.0-16.0 [facility] Comment on above: Performed By: #### C BC #### [facility] (UNKNOWN) [address] [place] [address] MCH (RBC) [Entitic mass] 29.8 pg Normal 27.0-35.0 [facility] Comment on above: Performed By: #### C BC #### [facility] (UNKNOWN) [address] [place] [address] MCHC 33.3 % Normal 31.0-37.0 [facility] Comment on above: Performed By: #### C BC #### [facility] (UNKNOWN) [address] [place] [address] MCV (RBC) [Entitic vol] 89.5 fL Normal 80.0-100.0 [facility] Comment on above: Performed By: #### C BC #### [facility] (UNKNOWN) [address] [place] [address] Platelet 265 x10*3/mcL Normal 150-450 [facility] Comment on above: Performed By: #### C BC #### [facility] (UNKNOWN) [address] [place] [address] Platelet mean volume (Bld) [Entitic vol] 7.7 fL Normal 6.7-10.6 [facility] Comment on above: Performed By: #### C BC #### [facility] (UNKNOWN) [address] [place] [address] RBC 4.29 x10*6/mcL Normal 3.80-5.20 [facility] Comment on above: Performed By: #### C BC #### [facility] (UNKNOWN) [address] [place] [address] WBC 3.4 x10*3/mcL Low 4.5-11.0 [facility] Comment on above: Performed By: #### C BC #### [facility] (UNKNOWN) [address] [place] [address] Diff Autoon 04-05-2024 Baso Absolute 0.0 x10*3/mcL Normal 0.0-0.2 [facility] Comment on above: Performed By: #### C BC #### [facility] (UNKNOWN) [address] [place] [address] Basophils/100 WBC (Bld) 0.6 % Normal 0.0-1.5 [facility] Comment on above: Performed By: #### C BC #### [facility] (UNKNOWN) [address] [place] [address] Eos Absolute 0.0 x10*3/mcL Normal 0.0-0.4 [facility] Comment on above: Performed By: #### C BC #### [facility] (UNKNOWN) [address] [place] [address] Eosinophils/100 WBC (Bld) 1.5 % Normal 0.0-5.4 [facility] Comment on above: Performed By: #### C BC #### [facility] (UNKNOWN) [address] [place] [address] Lymph Absolute 1.5 x10*3/mcL Normal 1.0-4.8 [facility] Comment on above: Performed By: #### C BC #### [facility] (UNKNOWN) [address] [place] [address] Lymphocytes/100 WBC (Bld) 43.9 % High 27.2-40.8 [facility] Comment on above: Performed By: #### C BC #### [facility] (UNKNOWN) [address] [place] [address] Hart Absolute 0.4 x10*3/mcL Normal 0.1-1.1 [facility] Comment on above: Performed By: #### C BC #### [facility] (UNKNOWN) [address] [place] [address] Monocytes/100 WBC (Bld) 11.0 % Normal 3.7-11.9 [facility] Comment on above: Performed By: #### C BC #### [facility] (UNKNOWN) [address] [place] [address] Neutro Absolute 1.4 x10*3/mcL Low 1.8-7.7 [facility] Comment on above: Performed By: #### C BC #### [facility] (UNKNOWN) [address] [place] [address] Neutro Auto 43.0 % Low 47.2-70.8 [facility] Comment on above: Performed By: #### C BC #### [facility] (UNKNOWN) [address] [place] [address] Medical Oncology Office/Clin ic Noteon 04-05-2024 Medical Oncology Office/Clinic Note Chief Complaint Follow-up/reassessment , leukopenia History of Present Illness 62-year-old lady with medical history as below remarkable for history of localized melanoma in the left leg that was resected in 2008. She reports she did not need any further treatment. 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 Patient was referred to our office because of leukopenia. Per chart review we were able to retrieve 3 CBCs as below: 01/07/2020: CBC showed WBC 4.1, hemoglobin 12.7, MCV 87.2, platelets 268, ANC 1.9, ALC 1.6. 12/01/2017: CBC showed WBC 3.5, hemoglobin 12.8, MCV 88.0, platelets 278, ANC 1.4, ALC 1.4. 06/14/2022: CBC showed WBC 2.9, hemoglobin 12, MCV 86.9, platelets 248. No differential on this CBC Patient also showed me CBC from 04/19/2022 which showed WBC: 2.9, hemoglobin 12.3, platelets 241. She also showed me a CBC from 05/17/2022 with WBC 2.9, hemoglobin 11.9, platelets 252. No differential. She reports feeling well. Denies specific complaints. She denies recurrent/recent infection, night sweats, weight loss. She does not drink alcohol. No new medications. She reports she has been on Paxil for many years for anxiety and she weaned herself off this medication around 6 months ago. No history chemotherapy or radiation. Family history remarkable for mother who had breast cancer in her 50s. Patient denies any bleeding problems. She is physically active. She is not aware of any family member who has low white cell count. Interim history: Patient is here today for follow-up. Coming for follow-up today because we received a CBC from her PCP with neutropenia/leukopenia , mild. White cell count 2.8, ANC 1089. Patient continues to feel well. Denies any complaints. She lost around 5 pounds since last year. Continues with anxiety. Started on BuSpar. Drinks alcohol rarely. No other new medications. No recent infections. No bleeding problems. Review of Systems As above, review of system is otherwise negative Physical Exam Vitals & Measurements T: 36.7 ?C (Oral) HR: 65 (Peripheral) BP: 127/73 SpO2: 99% HT: 155 cm HT: 155 cm WT: 49.0 kg (Dosing) WT: 49.0 kg (Dosing) WT: 49.0 kg BMI: 20.4 ECOG PS: 0 General: alert and oriented pleasant lady; no apparent distress HEENT: NC/AT, sclera clear, extraocular movements intact Resp: Good air entry bilateral, no wheezes Cardio: Normal S1, S2 GI: Soft, nontender Skin: no rashes or bruises on visible skin Neuro: LOGAN, No focal deficit grossly Psych: appropriate affect Assessment/Plan 62-year-old lady with what appears to be chronic fluctuating leukopenia. She has normal hemoglobin and platelet counts. Patient is asymptomatic. Work-up here showed no evidence of nutritional deficiency with normal iron studies, B12, folate, MMA, copper. She has positive JOSEFINA with elevated titer at 1:640. Negative rheumatoid factor. She was seen by rheumatology and was not felt to have any autoimmune disease at this point. Peripheral blood flow cytometry unremarkable. No splenomegaly on ultrasound Repeat CBC today showed WBC 3.4, ANC borderline at 1400. She has chronic fluctuating leukopenia with borderline neutropenia. We discussed today doing bone marrow biopsy to rule out underlying bone marrow pathology which also I feel is less likely but given recurrent leukopenia we will proceed with that. Patient is agreeable but will want to check with her insurance prior to proceeding with that. Other option is to repeat CBC in 2 months and come and see me again in 4 months. Patient to let us know if she wants to cancel the bone marrow biopsy which we ordered today. Patient knows to call and notify us should he/she have any signs or symptoms of concerns. Patient verbalizes understanding and agreement with this plan. Time Spent with the Patient I have personally spent [30] minutes on this date, directly related to today's patient visit, including pre and post visit work, for this date of service. Time listed does not include time spent on separately billable services. Past Medical History Ongoing JOSEFINA positive Leukopenia Historical No qualifying data Past Surgical History Brow lift Appendectomy Partial hysterectomy Allergies aspirin (Anaphylactic reaction) Family History Breast cancer: Mother. Hypertension: Mother. Health Status Family Member(s) Social History Alcohol Never Tobacco Never (less than 100 in lifetime) Use:. Medications Klor-Con M20 oral tablet, extended release, 20 mEq= 1 tabs, Oral, Daily potassium chloride 20 mEq oral tablet, extended release, 20 mEq= 1 tabs, Oral, Daily Laboratory Data Baso Absolute: 0 x10 Basophil Auto: 0.6 % (04/05/24) Eos Absolute: 0 x10 Eos Auto: 1.5 % (04/05/24) Hct: 38.4 % (04/05/24) Hgb: 12.8 g/dL (04/05/24) Lymph Absolute: 1.5 x10 Lymph Auto: 43.9 % High (04/05/24) Hart Absolute: 0.4 x10 Hart Auto: 11 % (04/05/24) Neutro Absolute: 1.4 x10 Neutro Auto: 43 % Low (04/05/24) Platelet: 265 x10 WBC: 3.4 x10 Diagnostic Re (more content not included)... Normal [facility] Alanine aminotransferase [En zymatic activity/volume] in Serum or PlasmaOrdered By: OUTREACH COMMUNITY on 09-26-2023 ALT [Catalytic activity/Vol] 11 U/L 7-52 [facility] Albumin [Mass/volume] in Ser um or Plasma by Bromocresol green (BCG) dye binding methoOrdered By: OUTREACH COMMUNITY on 09-26-2023 Albumin BCG dye [Mass/Vol] 4.4 g/dL 3.5-5.7 [facility] Alkaline phosphatase [Enzyma tic activity/volume] in Serum or PlasmaOrdered By: OUTREACH COMMUNITY on 09-26-2023 ALP [Catalytic activity/Vol] 77 U/L 34-104 [facility] Aspartate aminotransferase [ Enzymatic activity/volume] in Serum or PlasmaOrdered By: OUTREACH COMMUNITY on 09-26-2023 AST [Catalytic activity/Vol] 16 U/L 13-39 [facility] Bilirubin.total [Mass/volume ] in Serum or PlasmaOrdered By: OUTREACH COMMUNITY on 09-26-2023 Bilirubin [Mass/Vol] 0.5 mg/dL 0.3-1.0 [facility] CBC Without Differentialon 0 09-26-2023 Erythrocyte distribution width (RBC) [Ratio] 12.4 % Normal 11.9-15.3 [facility] Comment on above: Performed By: #### C JOHNNA, OUTREACH TSH, OUTREACH LIPID, OUTREACH CMP #### [facility] [address] Hematocrit (Bld) [Volume fraction] 36.0 % Normal 34.0-46.4 [facility] Comment on above: Performed By: #### C BCNOOUTREACH, OUTREACH TSH, OUTREACH LIPID, OUTREACH CMP #### [facility] [address] [place] [address] Hemoglobin (Bld) [Mass/Vol] 12.0 g/dL Normal 11.8-15.4 [facility] Comment on above: Performed By: #### C BCNOOUTREACH, OUTREACH TSH, OUTREACH LIPID, OUTREACH CMP #### [facility] [address] [place] [address] MCH (RBC) [Entitic mass] 29.4 pg Normal 24.7-34.3 [facility] Comment on above: Performed By: #### C BCNOOUTREACH, OUTREACH TSH, OUTREACH LIPID, OUTREACH CMP #### [facility] [address] [place] [address] MCV (RBC) [Entitic vol] 87.9 fL Normal 80-100 F [facility] Comment on above: Performed By: #### C BCNOOUTREACH, OUTREACH TSH, OUTREACH LIPID, OUTREACH CMP #### [address] Mean Corpuscular HGB Conc 33.5 g/dL Normal 32.0-35.0 [facility] Comment on above: Performed By: #### C BCNOOUTREACH, OUTREACH TSH, OUTREACH LIPID, OUTREACH CMP #### [address] Platelet mean volume (Bld) [Entitic vol] 8.4 fL Normal 6.3-10.7 [facility] Comment on above: Result Comment: PERF ORMED BY: [place] [address] PATHOLOGIST BOOTMAKER LEEANN MICHAUD M.D. Performed By: #### C BCNOOUTREACH, OUTREACH TSH, OUTREACH LIPID, OUTREACH CMP #### [address] Platelets (Bld) [#/Vol] 296 10*3/uL Normal 150-450 [facility] Comment on above: Performed By: #### C BCNOOUTREACH, OUTREACH TSH, OUTREACH LIPID, OUTREACH CMP #### [address] [place] [address] [place] RBC (Bld) [#/Vol] 4.09 10*6/uL Normal 3.60-5.00 [facility] Comment on above: Performed By: #### C BCNOOUTREACH, OUTREACH TSH, OUTREACH LIPID, OUTREACH CMP #### [facility] [address] [place] [address] WBC (Bld) [#/Vol] 3.3 10*3/uL Low 3.8-11.6 [facility] Comment on above: Performed By: #### C BCNOOUTREACH, OUTREACH TSH, OUTREACH LIPID, OUTREACH CMP #### [facility] [address] [place] [address] CMP Outreachon 09-26-2023 Albumin [Mass/Vol] 4.4 g/dL Normal 3.5-5.7 [facility] Comment on above: Performed By: #### C BCNOOUTREACH, OUTREACH TSH, OUTREACH LIPID, OUTREACH CMP #### [facility] [address] [place] [address] ALP [Catalytic activity/Vol] 77 U/L Normal 34-104 [facility] Comment on above: Performed By: #### C BCNOOUTREACH, OUTREACH TSH, OUTREACH LIPID, OUTREACH CMP #### [facility] [address] [place] [address] ALT [Catalytic activity/Vol] 11 U/L Normal 7-52 [facility] Comment on above: Performed By: #### C BCNOOUTREACH, OUTREACH TSH, OUTREACH LIPID, OUTREACH CMP #### [facility] [address] [place] [address] Anion gap [Moles/Vol] 8.4 mmol/L Normal 6.0-15.0 [facility] Comment on above: Performed By: #### C BCNOOUTREACH, OUTREACH TSH, OUTREACH LIPID, OUTREACH CMP #### [facility] [address] [place] [address] AST [Catalytic activity/Vol] 16 U/L Normal 13-39 [facility] Comment on above: Performed By: #### C BCNOOUTREACH, OUTREACH TSH, OUTREACH LIPID, OUTREACH CMP #### [facility] [address] [place] [address] [place] Bilirubin [Mass/Vol] 0.5 mg/dL Normal 0.3-1.0 [facility] Comment on above: Performed By: #### C BCNOOUTREACH, OUTREACH TSH, OUTREACH LIPID, OUTREACH CMP #### [facility] [address] [place] [address] [place] Calcium [Mass/Vol] 9.4 mg/dL Normal 8.6-10.3 [facility] Comment on above: Performed By: #### C BCNOOUTREACH, OUTREACH TSH, OUTREACH LIPID, OUTREACH CMP #### [facility] [address] [place] [address] [place] Chloride [Moles/Vol] 110 mmol/L High 98-107 [facility] Comment on above: Performed By: #### C BCNOOUTREACH, OUTREACH TSH, OUTREACH LIPID, OUTREACH CMP #### [facility] [address] [place] [address] [place] CO2 [Moles/Vol] 29.8 mmol/L Normal 21.0-31.0 [facility] Comment on above: Performed By: #### C BCNOOUTREACH, OUTREACH TSH, OUTREACH LIPID, OUTREACH CMP #### [facility] [address] [place] [address] [place] Creatinine [Mass/Vol] 0.80 mg/dL Normal 0.60-1.20 [facility] Comment on above: Performed By: #### C BCNOOUTREACH, OUTREACH TSH, OUTREACH LIPID, OUTREACH CMP #### [facility] [address] [place] [address] [place] GFR/1.73 sq M.predicted MDRD (S/P/Bld) [Vol rate/Area] mL/min/{1.73_m2} Normal [facility] Comment on above: Performed By: #### C BCNOOUTREACH, OUTREACH TSH, OUTREACH LIPID, OUTREACH CMP #### [facility] [address] [place] [address] [place] Glucose [Mass/Vol] 92 mg/dL Normal 70-100 [facility] Comment on above: Result Comment: [facility] [place] Glucose Reference Range is dependent on time and content of last meal. Glucose of more than 200 mg/dL in a nonstressed, ambulatory subject supports the diagnosis of Diabetes Mellitus. ADA recommended reference range Performed By: #### C BCNOOUTREACH, OUTREACH TSH, OUTREACH LIPID, OUTREACH CMP #### [facility] [address] Potassium [Moles/Vol] 4.2 mmol/L Normal 3.5-5.1 [facility] Comment on above: Performed By: #### C BCNOOUTREACH, OUTREACH TSH, OUTREACH LIPID, OUTREACH CMP #### [facility] [address] Protein [Mass/Vol] 6.8 g/dL Normal 6.4-8.9 [facility] Comment on above: Performed By: #### C BCNOOUTREACH, OUTREACH TSH, OUTREACH LIPID, OUTREACH CMP #### [facility] [address] [place] [address] [place] Sodium [Moles/Vol] 144 mmol/L Normal 136-145 [facility] Comment on above: Performed By: #### C BCNOOUTREACH, OUTREACH TSH, OUTREACH LIPID, OUTREACH CMP #### [facility] [address] [place] [address] Urea nitrogen [Mass/Vol] 16 mg/dL Normal 7-25 [facility] Comment on above: Performed By: #### C BCNOOUTREACH, OUTREACH TSH, OUTREACH LIPID, OUTREACH CMP #### [facility] [address] [place] [address] Calcium [Mass/volume] in Ser um or PlasmaOrdered By: [facility]REACH [facility] on 09-26-2023 Calcium [Mass/Vol] 9.4 mg/dL 8.6-10.3 [facility] Carbon dioxide, total [Moles /volume] in Serum or PlasmaOrdered By: OUTREACH [facility] on 09-26-2023 CO2 [Moles/Vol] 29.8 mmol/L 21.0-31.0 [facility] Chloride [Moles/volume] in S gagandeep or PlasmaOrdered By: OUTREACH [facility] on 09-26-2023 Chloride [Moles/Vol] 110 mmol/L 98-107 [facility] Cholesterol [Mass/volume] in Serum or PlasmaOrdered By: [facility]REACH [facility] on 09-26-2023 Cholesterol [Mass/Vol] 176 mg/dL 140-200 [facility] Comment on above: Chol less than 200 m g/dl low riskChol 201-239 mg/dl borderline riskChol 240 mg/dl and greater high risk Cholesterol in LDL Calc [Mas s/Vol]Ordered By: [facility]ACH [facility] on 09-26-2023 Cholesterol in LDL [Mass/Vol] 99 mg/dL 0-100 [facility] Comment on above: LDL ATP III CLASSIFI CATIONLDL less than 100 mg/dL OptimalLDL 100-129 mg/dL Near or above optimalLDL 130-159 mg/dL Borderline highLDL 160-189 mg/dL HighLDL greater than 189 mg/dL Very high Cholesterol in VLDL Calc [Ma ss/Vol]Ordered By: [facility] on 09-26-2023 Cholesterol in VLDL [Mass/Vol] 14 mg/dL [facility] Creatinine [Mass/volume] in Serum or PlasmaOrdered By: [facility]REACH [facility] on 09-26-2023 Creatinine [Mass/Vol] 0.80 mg/dL 0.60-1.20 [facility] Erythrocyte distribution wid th Auto (RBC) [Ratio]Ordered By: [facility]ACH [facility] on 09-26-2023 Erythrocyte distribution width (RBC) [Ratio] 12.4 % 11.9-15.3 [facility] Glucose [Mass/volume] in Ser um or PlasmaOrdered By: OUTREACH [facility] on 09-26-2023 Glucose [Mass/Vol] 92 mg/dL 70-100 [facility] Comment on above: ADA recommended refe rence rangeRandom Glucose Reference Range is dependent on time and content of last meal. Glucose of more than 200 mg/dL in a nonstressed, ambulatory subject supports the diagnosis of Diabetes Mellitus. Hematocrit Auto (Bld) [Volum e fraction]Ordered By: [facility] on 09-26-2023 Hematocrit (Bld) [Volume fraction] 36.0 % 34.0-46.4 [facility] Hemoglobin [Mass/volume] in BloodOrdered By: OUTREACH COMM[facility] on 03-16-2024 Hemoglobin (Bld) [Mass/Vol] 12.0 g/dL 11.8-15.4 [facility] Leukocytes [#/volume] correc judi for nucleated erythrocytes in Blood by Automated counOrdered By: OUTREACH COMM[facility] on 09-26-2023 WBC corrected for nucl RBC Auto (Bld) [#/Vol] 3.3 10*3/uL 3.8-11.6 [facility] Lipid Profile [facility] Cholesterol [Mass/Vol] 176 mg/dL Normal 140-200 [facility] Comment on above: Result Comment: Chol less than 200 mg/dl low risk Chol 201-239 mg/dl borderline risk Chol 240 mg/dl and greater high risk Performed By: #### C BCNOOUTREACH, OUTREACH TSH, OUTREACH LIPID, OUTREACH CMP #### [facility] [address] Cholesterol in HDL [Mass/Vol] 62 mg/dL Normal 23-92 [facility] Comment on above: Result Comment: HDL CHOL ATP-III CLASSIFICATION Cardiovascular Risk HDL > or equal to 60 mg/dL LOW HDL < 40 mg/dL HIGH Performed By: #### C BCNOOUTREACH, OUTREACH TSH, OUTREACH LIPID, OUTREACH CMP #### [facility] [address] [place] [id number] [facility] Cholesterol.total/Choles terol in HDL [Mass ratio] 2.8 {ratio} Normal <5.0 [facility] Comment on above: Performed By: #### C BCNOOUTREACH, OUTREACH TSH, OUTREACH LIPID, OUTREACH CMP #### [facility] [address] [place] [id number] [facility] LDL Cholesterol,Calculated 99 mg/dL Normal 0-100 [facility] Comment on above: Result Comment: LDL ATP III CLASSIFICATION LDL less than 100 mg/dL Optimal LDL 100-129 mg/dL Near or above optimal LDL 130-159 mg/dL Borderline high LDL 160-189 mg/dL High LDL greater than 189 mg/dL Very high Performed By: #### C BCNOOUTREACH, OUTREACH TSH, OUTREACH LIPID, OUTREACH CMP #### [facility] [address] [place] [address] [place] Triglyceride w/Reflex 74 mg/dL Normal 0-149 [facility] Comment on above: Result Comment: TRIG ATP III CLASSIFICATION TRIG less than 150 mg/dL Normal TRIG 150-199 mg/dL Borderline high TRIG 200-500 mg/dL High TRIG greater than 500 mg/dL Very high Standard traceable to the Center for Disease Conrtrol and Prevention (CDC) test method. Performed By: #### C BCNOOUTREACH, OUTREACH TSH, OUTREACH LIPID, OUTREACH CMP #### [facility] [address] VLDL CHOLESTEROL 14 mg/dL Normal [facility] Comment on above: Performed By: #### C BCNOOUTREACH, OUTREACH TSH, OUTREACH LIPID, OUTREACH CMP #### [facility] [address] MCH Auto (RBC) [Entitic mass ]Ordered By: [facility] on 09-26-2023 MCH (RBC) [Entitic mass] 29.4 pg 24.7-34.3 [facility] MCHC Auto (RBC) [Mass/Vol]Or dered By: [facility] on 09-26-2023 MCHC (RBC) [Mass/Vol] 33.5 g/dL 32.0-35.0 [facility] MCV Auto (RBC) [Entitic vol] Ordered By: [facility] on 09-26-2023 MCV (RBC) [Entitic vol] 87.9 fL 80-100 [facility] No Panel InformationOrdered By: [facility] on 09-26-2023 Estimated GFR (CKD-EPI) > 60.0 mL/Min [facility] Creatinine Clearance (Chem N/A [facility] Platelet mean volume Auto (B ld) [Entitic vol]Ordered By: [facility] on 09-26-2023 Platelet mean volume (Bld) [Entitic vol] 8.4 fL 6.3-10.7 [facility] Platelets Auto (Bld) [#/Vol] Ordered By: [facility] on 09-26-2023 Platelets (Bld) [#/Vol] 296 10*3/uL 150-450 [facility] Potassium [Moles/volume] in Serum or PlasmaOrdered By: [facility] on 09-26-2023 Potassium [Moles/Vol] 4.2 mmol/L 3.5-5.1 [facility] Protein [Mass/volume] in Ser um or PlasmaOrdered By: [facility] on 09-26-2023 Protein [Mass/Vol] 6.8 g/dL 6.4-8.9 [facility] RBC Auto (Bld) [#/Vol]Ordere d By: [facility] on 09-26-2023 RBC (Bld) [#/Vol] 4.09 10*6/uL 3.60-5.00 [facility] Serum or plasma anion gap de terminationOrdered By: [facility]ACH [facility] on 09-26-2023 Anion gap [Moles/Vol] 8.4 mmol/L 6.0-15.0 [facility] Serum or plasma high density lipoprotein (HDL) cholesterol measurementOrdered By: [facility] on 09-26-2023 Cholesterol in HDL [Mass/Vol] 62 mg/dL 23-92 [facility] Comment on above: HDL CHOL ATP-III CLA SSIFICATION Cardiovascular RiskHDL > or equal to 60 mg/dL LOWHDL < 40 mg/dL HIGH Serum or plasma total choles terol/high density lipoprotein (HDL) cholesterol mass ratOrdered By: [facility] on 09-26-2023 Cholesterol.total/Choles terol in HDL [Mass ratio] 2.8 {ratio} <5.0 [facility] Sodium [Moles/volume] in Ser um or PlasmaOrdered By: [facility] on 09-26-2023 Sodium [Moles/Vol] 144 mmol/L 136-145 [facility] Thyroid Stimulating Hormoneo n 09-26-2023 TSH Qn 1.17 m[IU]/L Normal 0.45-5.33 [facility] Comment on above: Result Comment: PERF ORMED BY: [place] [address] PATHOLOGIST [employer]OT[employer] LEEANN MICHAUD M.D. Performed By: #### C BCNOOUTREACH, OUTREACH TSH, OUTREACH LIPID, OUTREACH CMP #### [facility] [address] Thyrotropin [Units/volume] i n Serum or PlasmaOrdered By: [facility]REACH [facility] on 09-26-2023 TSH Qn 1.17 m[IU]/L 0.45-5.33 [facility] Triglyceride [Mass/volume] i n Serum or PlasmaOrdered By: OUTREACH [facility] on 09-26-2023 Triglyceride [Mass/Vol] 74 mg/dL 0-149 [facility] Comment on above: TRIG ATP III CLASSIF ICATIONTRIG less than 150 mg/dL NormalTRIG 150-199 mg/dL Borderline highTRIG 200-500 mg/dL High TRIG greater than 500 mg/dL Very highStandard traceable to the Center for Disease Conrtrol and Prevention (CDC) test method. Urea nitrogen [Mass/volume] in Serum or PlasmaOrdered By: [facility] on 09-26-2023 Urea nitrogen [Mass/Vol] 16 mg/dL 7- [facility] Body fluid albumin measureme nt (mass/volume)Ordered By: [facility] on 06-14-2022 Albumin (Body fld) [Mass/Vol] 4.0 g/dL 3.2-5.5 [facility] Cholesterol [Mass/volume] in Serum or PlasmaOrdered By: OUTREACH [facility] on 06-14-2022 Cholesterol [Mass/Vol] 205 mg/dL 140-200 [facility] Comment on above: Chol less than 200 m g/dl low riskChol 201-239 mg/dl borderline riskChol 240 mg/dl and greater high risk Cholesterol in LDL Calc [Mas s/Vol]Ordered By: [facility] on 06-14-2022 Cholesterol in LDL [Mass/Vol] 125 mg/dL 0-100 [facility] Comment on above: LDL ATP III CLASSIFI CATIONLDL less than 100 mg/dL OptimalLDL 100-129 mg/dL Near or above optimalLDL 130-159 mg/dL Borderline highLDL 160-189 mg/dL HighLDL greater than 189 mg/dL Very high Cholesterol in VLDL Calc [Ma ss/Vol]Ordered By: OUTREACH [facility] on 06-14-2022 Cholesterol in VLDL [Mass/Vol] 11 mg/dL [facility] Creatinine and Glomerular fi ltration rate.predicted panel (S/P/Bld)Ordered By: OUTREACH [facility] on 06-14-2022 Creatinine [Mass/Vol] 0.76 mg/dL 0.44-1.03 [facility] Erythrocyte distribution wid th Auto (RBC) [Ratio]Ordered By: OUTREACH [facility] on 06-14-2022 Erythrocyte distribution width (RBC) [Ratio] 12.5 % 11.9-15.3 [facility] Estimated glomerular filtrat ion rate (GFR) non- AmericanOrdered By: [facility] on 06-14-2022 GFR/1.73 sq M.predicted among non-blacks MDRD (S/P/Bld) [Vol rate/Area] > 60 mL/Min [facility] Hematocrit Auto (Bld) [Volum e fraction]Ordered By: [facility] on 06-14-2022 Hematocrit (Bld) [Volume fraction] 35.1 % 34.0-46.4 [facility] Hemoglobin [Mass/volume] in BloodOrdered By: [facility] on 06-14-2022 Hemoglobin (Bld) [Mass/Vol] 12.0 g/dL 11.8-15.4 [facility] Leukocytes [#/volume] correc judi for nucleated erythrocytes in Blood by Automated counOrdered By: [facility] on 06-14-2022 WBC corrected for nucl RBC Auto (Bld) [#/Vol] 2.9 10*3/uL 3.8-11.6 [facility] MCH Auto (RBC) [Entitic mass ]Ordered By: [facility] on 06-14-2022 MCH (RBC) [Entitic mass] 29.7 pg 24.7-34.3 [facility] MCHC Auto (RBC) [Mass/Vol]Or dered By: [facility] on 06-14-2022 MCHC (RBC) [Mass/Vol] 34.2 g/dL 32.0-35.0 [facility] MCV Auto (RBC) [Entitic vol] Ordered By: [facility] on 06-14-2022 MCV (RBC) [Entitic vol] 86.9 fL 80-100 [facility] No Panel InformationOrdered By: [facility] on 06-14-2022 Estimated GFR () > 60 mL/Min [facility] Comment on above: GFR estimated refere nce range: According to KDOQI guidelines, <60 ml/min/1.73m2 is sufficient to diagnose a patient with chronic kidney disease. Pharmacy Creatinine Clearance (Chem N/A [facility] Triglycerides Reflex 55 mg/dL 35-149 [facility] Comment on above: TRIG ATP III CLASSIF ICATIONTRIG less than 150 mg/dL NormalTRIG 150-199 mg/dL Borderline highTRIG 200-500 mg/dL High TRIG greater than 500 mg/dL Very highStandard traceable to the Center for Disease Conrtrol and Prevention (CDC) test method. Platelet mean volume Auto (B ld) [Entitic vol]Ordered By: [facility] on 06-14-2022 Platelet mean volume (Bld) [Entitic vol] 8.6 fL 6.3-10.7 [facility] Platelets Auto (Bld) [#/Vol] Ordered By: [facility] on 06-14-2022 Platelets (Bld) [#/Vol] 248 10*3/uL 150-450 [facility] Protein [Mass/volume] in Ser um or PlasmaOrdered By: [facility] on 06-14-2022 Protein [Mass/Vol] 6.6 g/dL 6.1-7.9 [facility] RBC Auto (Bld) [#/Vol]Ordere d By: [facility] on 06-14-2022 RBC (Bld) [#/Vol] 4.04 10*6/uL 3.60-5.00 [facility] Serum or plasma alanine neville otransferase measurement without P-5'-P (enzymatic activiOrdered By: [facility] on 06-14-2022 ALT No additional P-5'-P [Catalytic activity/Vol] 26 U/L 10-60 [facility] Serum or plasma alkaline rahul sphatase measurement (enzymatic activity/volume)Ordered By: [facility] on 06-14-2022 ALP [Catalytic activity/Vol] 76 U/L 32-92 [facility] Serum or plasma anion gap de terminationOrdered By: [facility] on 06-14-2022 Anion gap [Moles/Vol] 9.1 mmol/L 6.0-15.0 [facility] Serum or plasma aspartate am inotransferase measurement (enzymatic activity/volume)Ordered By: [facility] on 06-14-2022 AST [Catalytic activity/Vol] 25 U/L 10-42 [facility] Serum or plasma calcium jenni urement (mass/volume)Ordered By: [facility] on 06-14-2022 Calcium [Mass/Vol] 9.3 mg/dL 8.2-10.2 [facility] Serum or plasma chloride albin surement (moles/volume)Ordered By: [facility] on 06-14-2022 Chloride [Moles/Vol] 105 mmol/L 95-114 [facility] Serum or plasma glucose jenni urement (mass/volume)Ordered By: [facility] on 06-14-2022 Glucose [Mass/Vol] 90 mg/dL 70-100 [facility] Comment on above: ADA recommended refe rence rangeRandom Glucose Reference Range is dependent on time and content of last meal. Glucose of more than 200 mg/dL in a nonstressed, ambulatory subject supports the diagnosis of Diabetes Mellitus. Serum or plasma high density lipoprotein (HDL) cholesterol measurementOrdered By: [facility] on 06-14-2022 Cholesterol in HDL [Mass/Vol] 69 mg/dL 35-85 [facility] Comment on above: HDL CHOL ATP-III CLA SSIFICATION Cardiovascular RiskHDL > or equal to 60 mg/dL LOWHDL < 40 mg/dL HIGH Serum or plasma potassium me asurement (moles/volume)Ordered By: [facility] on 06-14-2022 Potassium [Moles/Vol] 3.9 mmol/L 3.5-5.1 [facility] Serum or plasma sodium measu rement (moles/volume)Ordered By: [facility] on 06-14-2022 Sodium [Moles/Vol] 138 mmol/L 136-146 [facility] Serum or plasma total biliru bin measurement (mass/volume)Ordered By: [facility] on 06-14-2022 Bilirubin [Mass/Vol] 0.7 mg/dL 0.3-1.2 [facility] Serum or plasma total carbon dioxide measurement (moles/volume)Ordered By: [facility] on 06-14-2022 CO2 [Moles/Vol] 27.8 mmol/L 22.0-30.0 [facility] Serum or plasma total choles terol/high density lipoprotein (HDL) cholesterol mass ratOrdered By: [facility] on 06-14-2022 Cholesterol.total/Choles terol in HDL [Mass ratio] 3.0 {ratio} <5.0 [facility] Serum or plasma urea nitroge n measurement (mass/volume)Ordered By: OUTREACH [facility] on 06-14-2022 Urea nitrogen [Mass/Vol] 17 mg/dL 9- [facility] Albumin [Mass/volume] in Ser um or PlasmaOrdered By: OUTREACH [facility] on 05-17-2022 Albumin [Mass/Vol] 3.7 g/dL 3.2-5.5 [facility] Cholesterol [Mass/volume] in Serum or PlasmaOrdered By: OUTREACH [facility] on 05-17-2022 Cholesterol [Mass/Vol] 184 mg/dL 140-200 [facility] Comment on above: Chol less than 200 m g/dl low riskChol 201-239 mg/dl borderline riskChol 240 mg/dl and greater high risk Cholesterol in LDL Calc [Mas s/Vol]Ordered By: OUTREACH [facility] on 05-17-2022 Cholesterol in LDL [Mass/Vol] 110 mg/dL 0-100 [facility] Comment on above: LDL ATP III CLASSIFI CATIONLDL less than 100 mg/dL OptimalLDL 100-129 mg/dL Near or above optimalLDL 130-159 mg/dL Borderline highLDL 160-189 mg/dL HighLDL greater than 189 mg/dL Very high Cholesterol in VLDL Calc [Ma ss/Vol]Ordered By: OUTREACH [facility] on 05-17-2022 Cholesterol in VLDL [Mass/Vol] 7 mg/dL [facility] Creatinine and Glomerular fi ltration rate.predicted panel (S/P/Bld)Ordered By: OUTREACH [facility] on 05-17-2022 Creatinine [Mass/Vol] 0.80 mg/dL 0.44-1.03 [facility] Erythrocyte distribution wid th Auto (RBC) [Ratio]Ordered By: OUTREACH [facility] on 05-17-2022 Erythrocyte distribution width (RBC) [Ratio] 12.8 % 11.9-15.3 [facility] Estimated glomerular filtrat ion rate (GFR) non- AmericanOrdered By: OUTREACH [facility] on 05-17-2022 GFR/1.73 sq M.predicted among non-blacks MDRD (S/P/Bld) [Vol rate/Area] > 60 mL/Min [facility] Hematocrit Auto (Bld) [Volum e fraction]Ordered By: OUTREACH [facility] on 05-17-2022 Hematocrit (Bld) [Volume fraction] 34.9 % 34.0-46.4 [facility] Hemoglobin [Mass/volume] in BloodOrdered By: [facility] on 05-17-2022 Hemoglobin (Bld) [Mass/Vol] 11.9 g/dL 11.8-15.4 [facility] MCH Auto (RBC) [Entitic mass ]Ordered By: [facility] on 05-17-2022 MCH (RBC) [Entitic mass] 29.8 pg 24.7-34.3 [facility] MCHC Auto (RBC) [Mass/Vol]Or dered By: [facility] on 05-17-2022 MCHC (RBC) [Mass/Vol] 34.1 g/dL 32.0-35.0 [facility] MCV Auto (RBC) [Entitic vol] Ordered By: [facility] on 05-17-2022 MCV (RBC) [Entitic vol] 87.2 fL 80-100 [facility] No Panel InformationOrdered By: [facility] on 05-17-2022 Estimated GFR () > 60 mL/Min [facility] Comment on above: GFR estimated refere nce range: According to KDOQI guidelines, <60 ml/min/1.73m2 is sufficient to diagnose a patient with chronic kidney disease. Pharmacy Creatinine Clearance (Chem N/A [facility] Triglycerides Reflex 36 mg/dL 35-149 [facility] Comment on above: TRIG ATP III CLASSIF ICATIONTRIG less than 150 mg/dL NormalTRIG 150-199 mg/dL Borderline highTRIG 200-500 mg/dL High TRIG greater than 500 mg/dL Very highStandard traceable to the Center for Disease Conrtrol and Prevention (CDC) test method. Platelet mean volume Auto (B ld) [Entitic vol]Ordered By: [facility] on 05-17-2022 Platelet mean volume (Bld) [Entitic vol] 8.5 fL 6.3-10.7 [facility] Platelets Auto (Bld) [#/Vol] Ordered By: [facility] on 05-17-2022 Platelets (Bld) [#/Vol] 252 10*3/uL 150-450 [facility] Protein [Mass/volume] in Ser um or PlasmaOrdered By: [facility] on 05-17-2022 Protein [Mass/Vol] 6.2 g/dL 6.1-7.9 [facility] RBC Auto (Bld) [#/Vol]Ordere d By: [facility] on 05-17-2022 RBC (Bld) [#/Vol] 4.01 10*6/uL 3.60-5.00 [facility] Serum or plasma alanine neville otransferase measurement without P-5'-P (enzymatic activiOrdered By: [facility] on 05-17-2022 ALT No additional P-5'-P [Catalytic activity/Vol] 20 U/L 10-60 [facility] Serum or plasma alkaline rahul sphatase measurement (enzymatic activity/volume)Ordered By: [facility] on 05-17-2022 ALP [Catalytic activity/Vol] 75 U/L 32-92 [facility] Serum or plasma anion gap de terminationOrdered By: [facility] on 05-17-2022 Anion gap [Moles/Vol] 7.6 mmol/L 6.0-15.0 [facility] Serum or plasma aspartate am inotransferase measurement (enzymatic activity/volume)Ordered By: [facility] on 05-17-2022 AST [Catalytic activity/Vol] 23 U/L 10-42 [facility] Serum or plasma calcium jenni urement (mass/volume)Ordered By: [facility] on 05-17-2022 Calcium [Mass/Vol] 9.1 mg/dL 8.2-10.2 [facility] Serum or plasma chloride albin surement (moles/volume)Ordered By: [facility] on 05-17-2022 Chloride [Moles/Vol] 108 mmol/L 95-114 [facility] Serum or plasma glucose jenni urement (mass/volume)Ordered By: [facility] on 05-17-2022 Glucose [Mass/Vol] 90 mg/dL 70-100 [facility] Comment on above: ADA recommended refe rence rangeRandom Glucose Reference Range is dependent on time and content of last meal. Glucose of more than 200 mg/dL in a nonstressed, ambulatory subject supports the diagnosis of Diabetes Mellitus. Serum or plasma high density lipoprotein (HDL) cholesterol measurementOrdered By: [facility] on 05-17-2022 Cholesterol in HDL [Mass/Vol] 67 mg/dL 35-85 [facility] Comment on above: HDL CHOL ATP-III CLA SSIFICATION Cardiovascular RiskHDL > or equal to 60 mg/dL LOWHDL < 40 mg/dL HIGH Serum or plasma potassium me asurement (moles/volume)Ordered By: [facility] on 05-17-2022 Potassium [Moles/Vol] 4.0 mmol/L 3.5-5.1 [facility] Serum or plasma sodium measu rement (moles/volume)Ordered By: [facility] on 05-17-2022 Sodium [Moles/Vol] 141 mmol/L 136-146 [facility] Serum or plasma total biliru bin measurement (mass/volume)Ordered By: [facility] on 05-17-2022 Bilirubin [Mass/Vol] 0.6 mg/dL 0.3-1.2 [facility] Serum or plasma total carbon dioxide measurement (moles/volume)Ordered By: [facility] on 05-17-2022 CO2 [Moles/Vol] 29.4 mmol/L 22.0-30.0 [facility] Serum or plasma total choles terol/high density lipoprotein (HDL) cholesterol mass ratOrdered By: [facility] on 05-17-2022 Cholesterol.total/Choles terol in HDL [Mass ratio] 2.7 {ratio} <5.0 [facility] Serum or plasma urea nitroge n measurement (mass/volume)Ordered By: [facility] on 05-17-2022 Urea nitrogen [Mass/Vol] 18 mg/dL 9-23 [facility] WBC Auto (Bld) [#/Vol]Ordere d By: [facility] on 05-17-2022 WBC (Bld) [#/Vol] 2.9 10*3/uL 3.8-11.6 [facility] Albumin [Mass/volume] in Ser um or PlasmaOrdered By: [facility] on 04-19-2022 Albumin [Mass/Vol] 3.9 g/dL 3.2-5.5 [facility] Blood hemoglobin measurement (mass/volume)Ordered By: [facility] on 04-19-2022 Hemoglobin (Bld) [Mass/Vol] 12.3 g/dL 11.8-15.4 [facility] Cholesterol [Mass/volume] in Serum or PlasmaOrdered By: [facility] on 04-19-2022 Cholesterol [Mass/Vol] 198 mg/dL 140-200 [facility] Comment on above: Chol less than 200 m g/dl low riskChol 201-239 mg/dl borderline riskChol 240 mg/dl and greater high risk Cholesterol in LDL Calc [Mas s/Vol]Ordered By: [facility] on 04-19-2022 Cholesterol in LDL [Mass/Vol] 117 mg/dL 0-100 [facility] Comment on above: LDL ATP III CLASSIFI CATIONLDL less than 100 mg/dL OptimalLDL 100-129 mg/dL Near or above optimalLDL 130-159 mg/dL Borderline highLDL 160-189 mg/dL HighLDL greater than 189 mg/dL Very high Cholesterol in VLDL Calc [Ma ss/Vol]Ordered By: [facility] on 04-19-2022 Cholesterol in VLDL [Mass/Vol] 14 mg/dL [facility] Creatinine and Glomerular fi ltration rate.predicted panel (S/P/Bld)Ordered By: [facility] on 04-19-2022 Creatinine [Mass/Vol] 0.82 mg/dL 0.44-1.03 [facility] Erythrocyte distribution wid th Auto (RBC) [Ratio]Ordered By: [facility] on 04-19-2022 Erythrocyte distribution width (RBC) [Ratio] 12.6 % 11.9-15.3 [facility] Estimated glomerular filtrat ion rate (GFR) non- AmericanOrdered By: [facility] on 04-19-2022 GFR/1.73 sq M.predicted among non-blacks MDRD (S/P/Bld) [Vol rate/Area] > 60 mL/Min [facility] Hematocrit Auto (Bld) [Volum e fraction]Ordered By: [facility] on 04-19-2022 Hematocrit (Bld) [Volume fraction] 36.5 % 34.0-46.4 [facility] MCH Auto (RBC) [Entitic mass ]Ordered By: [facility] on 04-19-2022 MCH (RBC) [Entitic mass] 29.5 pg 24.7-34.3 [facility] MCHC Auto (RBC) [Mass/Vol]Or dered By: [facility] on 04-19-2022 MCHC (RBC) [Mass/Vol] 33.8 g/dL 32.0-35.0 [facility] MCV Auto (RBC) [Entitic vol] Ordered By: [facility] on 04-19-2022 MCV (RBC) [Entitic vol] 87.2 fL 80-100 [facility] No Panel InformationOrdered By: [facility] on 04-19-2022 Estimated GFR () > 60 mL/Min [facility] Comment on above: GFR estimated refere nce range: According to KDOQI guidelines, <60 ml/min/1.73m2 is sufficient to diagnose a patient with chronic kidney disease. Pharmacy Creatinine Clearance (Chem N/A [facility] Triglycerides Reflex 70 mg/dL 35-149 [facility] Comment on above: TRIG ATP III CLASSIF ICATIONTRIG less than 150 mg/dL NormalTRIG 150-199 mg/dL Borderline highTRIG 200-500 mg/dL High TRIG greater than 500 mg/dL Very highStandard traceable to the Center for Disease Conrtrol and Prevention (CDC) test method. Platelet mean volume Auto (B ld) [Entitic vol]Ordered By: [facility] on 04-19-2022 Platelet mean volume (Bld) [Entitic vol] 8.4 fL 6.3-10.7 [facility] Platelets Auto (Bld) [#/Vol] Ordered By: [facility] on 04-19-2022 Platelets (Bld) [#/Vol] 241 10*3/uL 150-450 [facility] Protein [Mass/volume] in Ser um or PlasmaOrdered By: [facility] on 04-19-2022 Protein [Mass/Vol] 6.5 g/dL 6.1-7.9 [facility] RBC Auto (Bld) [#/Vol]Ordere d By: [facility] on 04-19-2022 RBC (Bld) [#/Vol] 4.18 10*6/uL 3.60-5.00 [facility] Serum or plasma alanine neville otransferase measurement without P-5'-P (enzymatic activiOrdered By: [facility] on 04-19-2022 ALT No additional P-5'-P [Catalytic activity/Vol] 19 U/L 10-60 [facility] Serum or plasma alkaline rahul sphatase measurement (enzymatic activity/volume)Ordered By: [facility] on 04-19-2022 ALP [Catalytic activity/Vol] 71 U/L 32-92 [facility] Serum or plasma anion gap de terminationOrdered By: [facility] on 04-19-2022 Anion gap [Moles/Vol] 9.6 mmol/L 6.0-15.0 [facility] Serum or plasma aspartate am inotransferase measurement (enzymatic activity/volume)Ordered By: [facility] on 04-19-2022 AST [Catalytic activity/Vol] 24 U/L 10-42 [facility] Serum or plasma calcium jenni urement (mass/volume)Ordered By: [facility] on 04-19-2022 Calcium [Mass/Vol] 9.4 mg/dL 8.2-10.2 [facility] Serum or plasma chloride albin surement (moles/volume)Ordered By: [facility] on 04-19-2022 Chloride [Moles/Vol] 107 mmol/L 95-114 [facility] Serum or plasma glucose jenni urement (mass/volume)Ordered By: [facility] on 04-19-2022 Glucose [Mass/Vol] 96 mg/dL 70-100 [facility] Comment on above: ADA recommended refe rence rangeRandom Glucose Reference Range is dependent on time and content of last meal. Glucose of more than 200 mg/dL in a nonstressed, ambulatory subject supports the diagnosis of Diabetes Mellitus. Serum or plasma high density lipoprotein (HDL) cholesterol measurementOrdered By: [facility] on 04-19-2022 Cholesterol in HDL [Mass/Vol] 67 mg/dL 35-85 [facility] Comment on above: HDL CHOL ATP-III CLA SSIFICATION Cardiovascular RiskHDL > or equal to 60 mg/dL LOWHDL < 40 mg/dL HIGH Serum or plasma potassium me asurement (moles/volume)Ordered By: [facility] on 04-19-2022 Potassium [Moles/Vol] 4.0 mmol/L 3.5-5.1 [facility] Serum or plasma sodium measu rement (moles/volume)Ordered By: [facility] on 04-19-2022 Sodium [Moles/Vol] 140 mmol/L 136-146 [facility] Serum or plasma total biliru bin measurement (mass/volume)Ordered By: [facility] on 04-19-2022 Bilirubin [Mass/Vol] 0.6 mg/dL 0.3-1.2 [facility] Serum or plasma total carbon dioxide measurement (moles/volume)Ordered By: [facility] on 04-19-2022 CO2 [Moles/Vol] 27.4 mmol/L 22.0-30.0 [facility] Serum or plasma total choles terol/high density lipoprotein (HDL) cholesterol mass ratOrdered By: [facility] on 04-19-2022 Cholesterol.total/Choles terol in HDL [Mass ratio] 3.0 {ratio} <5.0 [facility] Serum or plasma urea nitroge n measurement (mass/volume)Ordered By: [facility] on 04-19-2022 Urea nitrogen [Mass/Vol] 11 mg/dL 9-23 [facility] TSH DL <= 0.005 mIU/L QnOrde red By: [facility] on 04-19-2022 TSH Qn 2.48 m[IU]/L 0.45-5.33 [facility] WBC Auto (Bld) [#/Vol]Ordere d By: [facility] on 04-19-2022 WBC (Bld) [#/Vol] 2.9 10*3/uL 3.8-11.6 [facility] MG MAMM SCREEN 3D GRAYSON CADon 02-05-2022 MG MAMM SCREEN 3D GRAYSON CAD Patient: MEGAN SMITH Exam Date: 02/05/2022 : 1960 Gender:F Ordering : DR DEO DEAN Admission #: [id number] Family : Order #: [id number] CLICK HERE TO VIEW EXAM RADIOLOGY REPORT PROCEDURE: MAMMOGRAM SCREENING 3D BILATERAL CAD COMPARISON: MG MAMM GRAYSON SCRN W CAD DIG, 02/05/2021. MG MAMM GRAYSON SCRN W CAD DIG, 01/06/2020. INDICATIONS: Screening mammography Calculator Name NCI Breast Cancer Risk Assessment Tool 5 Year Breast Cancer Risk Not Reported. Lifetime Breast Cancer Risk Not Reported. Personal Breast Cancer No Personal Ovarian Cancer No Treatments None Family Cancers None LOCATION: [facility] BREAST COMPOSITION: Heterogeneously dense,which may obscure small masses. FINDINGS: DIAGNOSTIC CATEGORY 2--BENIGN FINDING: RIGHT BREAST: No significant suspicious finding. Stable small benign appearing lymph node upper outer quadrant. No significant change has occurred. LEFT BREAST: No significant suspicious finding. No significant change has occurred. RECOMMENDATIONS: ROUTINE MAMMOGRAM AND CLINICAL EVALUATION IN 12 MONTHS. PLEASE NOTE: A NORMAL MAMMOGRAM DOES NOT EXCLUDE THE POSSIBILITY OF BREAST CANCER. A CLINICALLY SUSPICIOUS PALPABLE LUMP SHOULD BE BIOPSIED. Dictated by: Tyrell Dimas M.D. on 02/06/2022 at 15:52 Approved by: Tyrell Dimas M.D. on 02/06/2022 at 15:55 Normal [facility] EKG 12 LeadOrdered By: Caroline moreira Result on 09-17-2021 Atrial Rate 66 BPM [employer] P [place] 41 degrees [employer] P-R Interval 118 ms [employer] Q-T Interval 390 ms [employer] QRS Duration 70 ms [facility] QTc Calculation (Bazett) 408 ms [employer] R [place] 47 degrees [facility] Health T [place] 41 degrees [facility] Ventricular Rate 66 BPM [facility] EKG 12 Leadon 09-17-2021 Normal sinus rhythm Normal ECG No previous ECGs available [facility] STV MUSE Result, Unknown Provider - 09/17/2021 Normal sinus rhythm Normal ECG No previous ECGs available [facility] Work Phone: Vital Signs Date Time Vital Sign Value Performing Clinician Facility 11-28-2024 18:41-0400 Body height 162.6 cm Quentin Koehler MD Work Phone: [facility] 11-28-2024 18:41-0400 Body mass index (BMI) [Ratio] 19.12 kg/m2 Quentin Koehler MD Work Phone: [facility] 11-28-2024 18:41-0400 Body weight 50.53 kg Quentin Koehler MD Work Phone: [facility] 11-28-2024 18:41-0400 Diastolic blood pressure 66 mm[Hg] Quentin Koehler MD Work Phone: [facility] 11-28-2024 18:41-0400 Heart rate 70 /min Quentin Koehler MD Work Phone: [facility] 11-28-2024 18:41-0400 Respiratory rate 18 /min Quentin Koehler MD Work Phone: [facility] 11-28-2024 18:41-0400 SaO2% (BldA) [Mass fraction] 98 % Quentin Koehler MD Work Phone: [facility] 11-28-2024 18:41-0400 Systolic blood pressure 122 mm[Hg] Quentin Koehler MD Work Phone: [facility] 10-25-2024 13:04-0400 Body mass index (BMI) [Ratio] 18.88 kg/m2 Quentin Koehlre MD Work Phone: [facility] 10-25-2024 13:04-0400 Body temperature 97.3 [degF] Quentin Koehler MD Work Phone: [facility] 10-25-2024 13:04-0400 Body weight 49.9 kg Quentin Koehler MD Work Phone: [facility] 10-25-2024 13:04-0400 Diastolic blood pressure 62 mm[Hg] Quentin Koehler MD Work Phone: [facility] 10-25-2024 13:04-0400 Heart rate 74 /min Quentin Koehler MD Work Phone: [facility] 10-25-2024 13:04-0400 SaO2% (BldA) [Mass fraction] 99 % Quentin Koehler MD Work Phone: [facility] 10-25-2024 13:04-0400 Systolic blood pressure 116 mm[Hg] Quentin Koehler MD Work Phone: [facility] 08-12-2024 13:43-0500 Body height 162.6 cm Quentin Koehler MD Work Phone: [facility] 08-12-2024 13:43-0500 Body mass index (BMI) [Ratio] 19.09 kg/m2 Quentin Koehler MD Work Phone: [facility] 08-12-2024 13:43-0500 Body weight 50.44 kg Quentin Koehler MD Work Phone: [facility] 08-12-2024 13:43-0500 Diastolic blood pressure 76 mm[Hg] Quentin Koehler MD Work Phone: [facility] 08-12-2024 13:43-0500 Heart rate 83 /min Quentin Koehler MD Work Phone: [facility] 08-12-2024 13:43-0500 Respiratory rate 18 /min Quentin Koehler MD Work Phone: [facility] 08-12-2024 13:43-0500 SaO2% (BldA) [Mass fraction] 99 % Quentin Koehler MD Work Phone: [facility] 08-12-2024 13:43-0500 Systolic blood pressure 122 mm[Hg] Quentin Koehler MD Work Phone: [facility] 04-07-2024 12:57-0400 Body height 162.6 cm Mirtha Roman TRANSIT OPERATOR Work Phone: [facility] 04-07-2024 12:57-0400 Body mass index (BMI) [Ratio] 18.54 kg/m2 Mirtha Roman TRANSIT OPERATOR Work Phone: [facility] 04-07-2024 12:57-0400 Body weight 48.99 kg Mirtha Roman TRANSIT OPERATOR Work Phone: [facility] 04-07-2024 12:57-0400 Diastolic blood pressure 74 mm[Hg] Mirtha Roman TRANSIT OPERATOR Work Phone: [facility] 04-07-2024 12:57-0400 Heart rate 72 /min Mirtha Roman TRANSIT OPERATOR Work Phone: [facility] 04-07-2024 12:57-0400 Respiratory rate 18 /min Mirtha Roman TRANSIT OPERATOR Work Phone: [facility] 04-07-2024 12:57-0400 SaO2% (BldA) [Mass fraction] 98 % Mirtha Roman TRANSIT OPERATOR Work Phone: [facility] 04-07-2024 12:57-0400 Systolic blood pressure 120 mm[Hg] Mirtha Roman TRANSIT OPERATOR Work Phone: [facility] 03-01-2024 09:25-0400 Body height 162.6 cm Mirtha Roman TRANSIT OPERATOR Work Phone: [facility] 03-01-2024 09:25-0400 Body mass index (BMI) [Ratio] 18.44 kg/m2 Mirtha Roman TRANSIT OPERATOR Work Phone: [facility] 03-01-2024 09:25-0400 Body weight 48.72 kg Mirtha Roman TRANSIT OPERATOR Work Phone: [facility] 03-01-2024 09:25-0400 Diastolic blood pressure 78 mm[Hg] Mirtha Roman TRANSIT OPERATOR Work Phone: [facility] 03-01-2024 09:25-0400 Heart rate 76 /min Mirtha Roman TRANSIT OPERATOR Work Phone: [facility] 03-01-2024 09:25-0400 Respiratory rate 18 /min Mirtha Roman TRANSIT OPERATOR Work Phone: [facility] 03-01-2024 09:25-0400 SaO2% (BldA) [Mass fraction] 98 % Mirtha Roman TRANSIT OPERATOR Work Phone: [facility] 03-01-2024 09:25-0400 Systolic blood pressure 128 mm[Hg] Mirtha Roman TRANSIT OPERATOR Work Phone: [facility] 02-29-2024 12:39-0400 Body height 154.94 cm [facility] 02-29-2024 12:39-0400 Body mass index (BMI) [Ratio] 20 kg/m2 [facility] 02-29-2024 12:39-0400 Body weight 48.08 kg [facility] 02-29-2024 12:39-0400 Diastolic blood pressure 72 mm[Hg] [facility] 02-29-2024 12:39-0400 Heart rate 78 /min [facility] 02-29-2024 12:39-0400 Respiratory rate 16 /min [facility] 02-29-2024 12:39-0400 SaO2% (BldA) [Mass fraction] 99 % [facility] 02-29-2024 12:39-0400 Systolic blood pressure 108 mm[Hg] [facility] 06-29-2023 13:30-0500 Body height 154.94 cm Deo Dean Other [facility] 06-29-2023 13:30-0500 Body mass index (BMI) [Ratio] 21.35 kg/m2 Deo Dean Other [facility] 06-29-2023 13:30-0500 Body weight 51.26 kg Deo Dean Other [facility] 06-29-2023 13:30-0500 Diastolic blood pressure 76 mm[Hg] Deo Dean Other [facility] 06-29-2023 13:30-0500 Respiratory rate 16 /min Deo Dean Other [facility] 06-29-2023 13:30-0500 SaO2% (BldA) [Mass fraction] 97 % Deo Dean Other [facility] 06-29-2023 13:30-0500 Systolic blood pressure 112 mm[Hg] Deo Dean Other [facility] 06-16-2022 14:00-0500 Body height 154.94 cm Deo Dean Other [facility] 06-16-2022 14:00-0500 Body mass index (BMI) [Ratio] 23.43 kg/m2 Deo Dean Other [facility] 06-16-2022 14:00-0500 Body weight 56.25 kg Deo Dean Other [facility] 06-16-2022 14:00-0500 Diastolic blood pressure 80 mm[Hg] Deo Dean Other [facility] 06-16-2022 14:00-0500 Respiratory rate 16 /min Deo Dean Other [facility] 06-16-2022 14:00-0500 SaO2% (BldA) [Mass fraction] 95 % Deo Dean Other [facility] 06-16-2022 14:00-0500 Systolic blood pressure 128 mm[Hg] Deo Dean Other [facility] 09-30-2021 15:43-0400 Diastolic blood pressure 74 mm[Hg] Damon Jones MD Work Phone: [employer] 09-30-2021 15:43-0400 Heart rate 84 /min Damon Jones MD Work Phone: [employer] 09-30-2021 15:43-0400 Respiratory rate 14 /min Damon Jones MD Work Phone: [employer] 09-30-2021 15:43-0400 SaO2% (BldA) [Mass fraction] 100 % Damon Jones MD Work Phone: [employer] 09-30-2021 15:43-0400 Systolic blood pressure 118 mm[Hg] Damon Jones MD Work Phone: [employer] 09-30-2021 14:25-0400 Body temperature 97 [degF] Damon Jones MD Work Phone: [employer] 09-30-2021 10:34-0400 Body height 154.9 cm Damon Jones MD Work Phone: [employer] 09-30-2021 10:34-0400 Body mass index (BMI) [Ratio] 23.81 kg/m2 Damon Jones MD Work Phone: [employer] 09-30-2021 10:34-0400 Body weight 57.15 kg Damon Jones MD Work Phone: [employer] 09-16-2021 11:39-0500 Body height 154.9 cm [facility] [employer] 09-16-2021 11:39-0500 Body mass index (BMI) [Ratio] 23.62 kg/m2 [facility] [employer] 09-16-2021 11:39-0500 Body weight 56.7 kg [facility] [employer] 09-16-2021 11:39-0500 Diastolic blood pressure 67 mm[Hg] [facility] [employer] 09-16-2021 11:39-0500 Heart rate 72 /min [facility] [employer] 09-16-2021 11:39-0500 Respiratory rate 16 /min [facility] [employer] 09-16-2021 11:39-0500 SaO2% (BldA) [Mass fraction] 100 % [facility] [employer] 09-16-2021 11:39-0500 Systolic blood pressure 130 mm[Hg] [facility] [employer] 08-26-2021 11:30-0500 Body height 154.94 cm Deo Dean Other [facility] 08-26-2021 11:30-0500 Body mass index (BMI) [Ratio] 23.62 kg/m2 Deo Dean Other [facility] 08-26-2021 11:30-0500 Body weight 56.7 kg Deo Dean Other [facility] 08-26-2021 11:30-0500 Diastolic blood pressure 70 mm[Hg] Deo Jermaine Other [facility] 08-26-2021 11:30-0500 Respiratory rate 16 /min Deo Jermaine Other [facility] 08-26-2021 11:30-0500 SaO2% (BldA) [Mass fraction] 99 % Deo Josexiao Other [facility] 08-26-2021 11:30-0500 Systolic blood pressure 102 mm[Hg] Deo Dean Other [facility] 06-03-2021 15:00-0500 Body height 154.94 cm Deo Dean Other [facility] 06-03-2021 15:00-0500 Body mass index (BMI) [Ratio] 23.28 kg/m2 Deo Dean Other [facility] 06-03-2021 15:00-0500 Body weight 55.88 kg Deo Jermaine Other [facility] 06-03-2021 15:00-0500 Diastolic blood pressure 74 mm[Hg] Deo Dean Other [facility] 06-03-2021 15:00-0500 Respiratory rate 16 /min Deo Dean Other [facility] Other 06-03-2021 15:00-0500 SaO2% (BldA) [Mass fraction] 98 % Deo Dean Other [facility] 06-03-2021 15:00-0500 Systolic blood pressure 112 mm[Hg] Deo Dean Other [facility] 05-09-2021 16:30-0400 Body height 154.94 cm Deo Dean Other [facility] 05-09-2021 16:30-0400 Body mass index (BMI) [Ratio] 23.54 kg/m2 Deo Dean Other [facility] 05-09-2021 16:30-0400 Body weight 56.52 kg Deo Dean Other [facility] Other 05-09-2021 16:30-0400 Diastolic blood pressure 68 mm[Hg] Deo Jermaine Other [facility] Other 05-09-2021 16:30-0400 Respiratory rate 18 /min Deo Dean Other [facility] Other 05-09-2021 16:30-0400 SaO2% (BldA) [Mass fraction] 97 % Deo Garciaxiao Other [facility] Other 05-09-2021 16:30-0400 Systolic blood pressure 118 mm[Hg] Deo Jermaine Other [facility] Other Encounters Encounter Date Encounter Type Care Provider Facility Start: 12-29-2024 End: 12-29-2024 ambulatory Quentin Koehler MD Facility:[facility] Start: 11-28-2024 End: 11-28-2024 Office outpatient visit 15 minutes Quentin Koehler MD Work Phone: [facility] Comment on above: Poison cathy dermatiti s (Primary Dx) Start: 11-28-2024 End: 11-28-2024 ambulatory QUENTIN KOEHLER Not Available Start: 11-28-2024 End: 11-28-2024 Bamboo flowsheet Quentin Koehler MD Work Phone: [facility] Start: 11-28-2024 End: 11-28-2024 Bamboo flowsheet Quentin Koehler MD Work Phone: [facility] Start: 10-25-2024 End: 10-25-2024 Bamboo flowsheet Quentin Koehler MD Work Phone: [facility] Start: 10-25-2024 End: 10-25-2024 Bamboo flowsheet Quentin Koehler MD Work Phone: [facility] Start: 10-25-2024 End: 10-25-2024 Office outpatient visit 10 minutes Quentin Koehlre MD Work Phone: [facility] Comment on above: Laceration of left l ittle finger without foreign body without damage to nail, subsequent encounter (Primary Dx) Start: 10-25-2024 End: 10-25-2024 ambulatory QUENTIN KOEHLER Not Available Start: 10-18-2024 End: 10-18-2024 Emergency department patient visit QUENTIN KOEHLER [facility] Start: 08-24-2024 End: 08-24-2024 Refill Quentin Koehler MD Work Phone: [facility] Comment on above: Dyspnea, unspecified type (Primary Dx) Start: 08-12-2024 End: 08-12-2024 Bamboo flowsheet Quentin Koehler MD Work Phone: [facility] Start: 08-12-2024 End: 08-12-2024 Bamboo flowsheet Quentin Koehler MD Work Phone: [facility] Start: 08-12-2024 End: 08-12-2024 Office outpatient visit 15 minutes Quentin Koehler MD Work Phone: [facility] Comment on above: Anxiety Start: 08-12-2024 End: 08-12-2024 ambulatory QUENTIN KOEHLER Not Available Start: 06-28-2024 End: 06-28-2024 ambulatory Tyrone Aguilera MD Facility:[facility] Start: 06-02-2024 End: 06-02-2024 ambulatory Tyrone Aguilera MD Facility:[facility] Start: 05-24-2024 End: 05-24-2024 ambulatory Deo Dean DO Facility:[facility] Start: 04-12-2024 ambulatory Deojose Dean DO F acility:[facility] Start: 04-07-2024 End: 04-07-2024 Bamboo flowsheet Mirtha Roman TRANSIT OPERATOR Work Phone: [facility] Start: 04-07-2024 End: 04-07-2024 Bamboo flowsheet Mirtha Roman TRANSIT OPERATOR Work Phone: [facility] Start: 04-07-2024 End: 04-07-2024 Office outpatient visit 15 minutes Mirtha Roman TRANSIT OPERATOR Work Phone: [facility] Comment on above: Anxiety Start: 04-07-2024 End: 04-07-2024 ambulatory MIRTHA ROMAN Not Available Start: 04-05-2024 End: 04-05-2024 ambulatory Deo Dean DO Facility:[facility] Start: 03-01-2024 End: 03-01-2024 Bamboo flowsheet Mirtha Roman TRANSIT OPERATOR Work Phone: [facility] Start: 03-01-2024 End: 03-01-2024 Bamboo flowsheet Mirtha Roman TRANSIT OPERATOR Work Phone: [facility] Start: 03-01-2024 End: 03-01-2024 Patient encounter status Mirtha Roman TRANSIT OPERATOR Work Phone: [facility] Work Phone: Start: 03-01-2024 End: 03-01-2024 Periodic preventive med est patient 40-64yrs Mirtha Roman TRANSIT OPERATOR Work Phone: [facility] Comment on above: Well adult exam (Nenita quentin Dx); Encounter for screening mammogram for malignant neoplasm of breast; Anxiety; Migraine without aura and without status migrainosus, not intractable (CMS/HCC); Weight loss; Leukopenia, unspecified type; H/O hysterectomy for benign disease Start: 03-01-2024 End: 03-01-2024 ambulatory MIRTHA ROMAN Not Available Start: 02-29-2024 End: 02-29-2024 ambulatory [facility] Work Phone: Start: 02-29-2024 End: 02-29-2024 Patient encounter procedure [facility] Work Phone: Start: 01-06-2024 End: 01-06-2024 ambulatory MIRTHA ROMAN Not Available Start: 12-22-2023 End: 12-22-2023 ambulatory MIRTHA ROMAN Not Available Start: 09-26-2023 End: 09-26-2023 ambulatory Outreach Community Facility:[facility] Start: 09-26-2023 End: 09-26-2023 ambulatory DO Deo Dean Work Phone: [facility] Work Phone: Start: 09-26-2023 End: 09-26-2023 Departed Referred DO Deo Dean Work Phone: [facility] Work Phone: Start: 06-29-2023 End: 06-29-2023 ambulatory Deo Dean Other [facility] Other Start: 06-29-2023 Office outpatient vi sit 10 minutes Deo Dean [facility] Start: 11-05-2022 End: 11-05-2022 ambulatory Deo Dean Other [facility] Other Start: 11-05-2022 Telephone encounter Deo Dean [facility] Start: 07-09-2022 End: 07-09-2022 ambulatory Deo Kuns Other [facility] Other Start: 07-09-2022 Telephone encounter Deo Garcias [facility] Start: 07-08-2022 End: 07-08-2022 ambulatory Deojose Garcias Other [facility] Other Start: 07-08-2022 Telephone encounter [facility] Start: 2022 End: 2022 ambulatory Deo Garcias Other [facility] Other Start: 2022 Telephone encounter Deo Garcias [facility] Start: 06-16-2022 End: 06-16-2022 ambulatory Deo Dean Other [facility] Other Start: 06-16-2022 Office outpatient vi sit 15 minutes Deo Joses [facility] Start: 06-14-2022 End: 06-14-2022 ambulatory DO Deo Garcias Work Phone: [facility] Work Phone: Start: 06-14-2022 End: 06-14-2022 Departed Referred DO Deo Dean Work Phone: [facility] Start: 05-22-2022 End: 05-22-2022 ambulatory Deo Garcias Other [facility] Other Start: 05-22-2022 Telephone encounter Deo Garcias [facility] Start: 05-17-2022 End: 05-17-2022 ambulatory DO Deojose Garcias Work Phone: [facility] Work Phone: Start: 05-17-2022 End: 05-17-2022 Departed Referred DO Deojose Garcias Work Phone: [facility] Start: 04-19-2022 End: 04-19-2022 ambulatory DO Deo Dean Work Phone: [facility] Work Phone: Start: 04-19-2022 End: 04-19-2022 Departed Referred DO Deo Dean Work Phone: [facility] Start: 04-15-2022 End: 04-15-2022 ambulatory Deo Dean Other [facility] Other Start: 04-15-2022 Telephone encounter Deo Dean [facility] [place] Start: 02-05-2022 End: 02-06-[address] TYRELL DIMAS Facility: Start: 01-14-2022 End: 01-14-2022 ambulatory Deo Dean Other [facility] Other Start: 01-14-2022 Telephone encounter Deo Dean [facility] [place] Start: 12-20-2021 End: 12-20-2021 ambulatory Deo Dean Other [facility] Other Start: 12-20-2021 Telephone encounter Deo Jermaine [facility] [place] Start: 12-16-2021 End: 12-16-2021 ambulatory Deo Dean Other [facility] Other Start: 12-16-2021 Telephone encounter Deo Dean [facility] [place] Start: 11-13-2021 End: 11-13-2021 ambulatory Nick Matthews Other [facility] Other Start: 11-13-2021 Telephone encounter Nick Matthews G Speech Language Pathologist Assistant Start: 11-07-2021 End: 11-07-2021 ambulatory Deo Dean Other [facility] Other Start: 11-07-2021 Telephone encounter Deo Dean [facility] [place] Start: 09-30-2021 End: 09-30-2021 ambulatory DAMON JONES [facility] Start: 09-30-2021 End: 09-30-2021 Subsequent hospital visit by physician Damon Jones MD Work Phone: [facility] Comment on above: Encounter for cosmet ic surgery (Primary Dx) Start: 09-27-2021 End: 09-27-2021 ambulatory Deo Dean Other [facility] Other Start: 09-27-2021 Telephone encounter Deo Dean [facility] [place] Start: 09-16-2021 Telephone encounter Deo Dean [facility] Start: 09-16-2021 End: 09-21-2021 ambulatory DAMON JONES [facility] Other Start: 09-16-2021 End: 09-20-2021 Subsequent hospital visit by physician [facility] Pat Schedule [facility] Pre-Admit Testing Start: 08-26-2021 End: 08-26-2021 ambulatory Deo Dean Other [facility] Other Start: 08-26-2021 Office outpatient vi sit 25 minutes Deo Dean [facility] [place] Start: 07-18-2021 End: 07-18-2021 ambulatory Deo Dean Other [facility] Other Start: 07-18-2021 Telephone encounter Deo Dean [facility] [place] Start: 06-24-2021 End: 06-24-2021 ambulatory Deo Dean Other [facility] Other Start: 06-24-2021 Telephone encounter Deo Dean [facility] [place] Start: 06-19-2021 End: 06-19-2021 ambulatory Deo Dean Other [facility] Other Start: 06-19-2021 Telephone encounter Deo Dean [facility] Start: 06-03-2021 End: 06-03-2021 ambulatory Deo Dean Other [facility] Other Start: 06-03-2021 Office outpatient vi sit 15 minutes Deo Dean [facility] Start: 05-09-2021 Office outpatient vi sit 25 minutes Deo Dean [facility] Procedures Date Procedure Procedure Detail Performing Clinician Start: 02-23-2024 Mammography Mirtha Roman NP Work Phone: Start: 12-02-2022 Colonoscopy Mirtha Roman TRANSIT OPERATOR Work Phone: Start: 09-16-2021 Ecg routine ecg w/le ast 12 lds trcg only w/o i&r Ladi Becker MD Work Phone: Screening for malign ant neoplasm of breast Deo Dean Other Screening for malign ant neoplasm of cervix Deo Dean Other Plan of Treatment Date Care Activity Detail Author Start: 12-02-2032 Screening for malign ant neoplasm of colon [facility] Start: 08-26-2031 DTaP/Tdap/Td vaccine (2 - Td or Tdap) DTaP/Tdap/Td vaccine (2 - Td or Tdap) [facility] Start: 03-09-2025 End: 03-09-2025 Patient encounter procedure 03/09/2025 10:00 AM EDT Office Visit [facility] [address] [place] [address] Quentin Koehler MD [address] [place] [address] [facility] Start: 02-22-2025 Screening for malign ant neoplasm of breast Mammogram [facility] Start: 11-28-2024 End: 11-28-2024 Patient encounter procedure 11/28/2024 7:00 PM EDT Office Visit [facility] [address] [place] [address] Quentin Koehler MD [address] [place] [address] Arrived [facility] Comment on above: Arrived Start: 10-25-2024 End: 10-25-2024 Patient encounter procedure 10/25/2024 1:00 PM EDT Office Visit [facility] [address] [place] [address] Quentin Koehler MD [address] [place] [address] Arrived [facility] Comment on above: Arrived Start: 08-12-2024 End: 08-12-2024 Patient encounter procedure 08/12/2024 1:40 PM EST Office Visit [facility] [address] [place] [address] Quentin Koehler MD [address] [place] [address] Arrived [facility] Comment on above: Arrived Start: 08-09-2024 End: 08-09-2024 Patient encounter procedure 08/09/2024 2:00 PM EST Office Visit [facility] [address] [place] [address] Mirtha Roman NP [address] [place] [address] [facility] Start: 04-07-2024 End: 04-07-2024 Patient encounter procedure 04/07/2024 1:00 PM EDT Office Visit [facility] [address] [place] [address] Mirtha Roman NP [address] [place] [address] Arrived [facility] Comment on above: Arrived Start: 03-13-2024 Influenza vaccination Influenza Vacc ine (#1) [facility] Start: 03-01-2024 End: 03-01-2025 CBC W Auto Differential panel - Blood CBC and differential Lab Routine Well adult exam Weight loss Leukopenia, unspecified type Expected: 03/01/2024 (Approximate), Expires: 03/01/2025 [facility] Work Phone: Comment on above: Expected: 03/01/2024 (Approximate), Expires: 03/01/2025 Start: 03-01-2024 End: 03-01-2025 Comprehensive metabolic 2000 panel - Serum or Plasma Comprehensive metabolic panel Lab Routine Well adult exam Weight loss Leukopenia, unspecified type Expected: 03/01/2024 (Approximate), Expires: 03/01/2025 [facility] Comment on above: Expected: 03/01/2024 (Approximate), Expires: 03/01/2025 Start: 03-01-2024 End: 03-01-2025 Lipid 1996 panel - Serum or Plasma Lipid panel Lab Routine Well adult exam Expected: 03/01/2024 (Approximate), Expires: 03/01/2025 [facility] Comment on above: Expected: 03/01/2024 (Approximate), Expires: 03/01/2025 Start: 03-01-2024 End: 03-01-2025 Thyrotropin [Units/volume] in Serum or Plasma TSH Lab Routine Anxiety Weight loss Leukopenia, unspecified type Expected: 03/01/2024 (Approximate), Expires: 03/01/2025 [facility] Comment on above: Expected: 03/01/2024 (Approximate), Expires: 03/01/2025 Start: 03-01-2024 End: 03-01-2024 Patient encounter procedure 03/01/2024 9:30 AM EDT Office Visit [facility] [address] [place] [address] Mirtha Roman NP [address], [place] [id number] Arrived [facility] Comment on above: Arrived Start: 10-21-2021 Shingles Vaccine (2 of 2) Shingles Vaccine (2 of 2) [facility] Start: 10-07-2021 End: 10-07-2021 Patient encounter procedure 10/07/2021 Office [place] [address] [place], [place] [id number] [facility] Start: 09-30-2021 End: 09-30-2021 Admission to same day surgery center 09/30/2021 Surgery [place] [address] [place], [place] [id number] COSMETIC ANTERIOR HAIRLINE BROW LIFT [facility] [place] Comment on above: COSMETIC ANTERIOR CELIS IRLINE BROW LIFT Start: 09-30-2021 Subsequent hospital visit by physician 09/30/2021 Hospital [place] [address] [place], [place] [id number] [facility] Start: 09-30-2021 End: 09-30-2021 Rhytidectomy forehead [facility] Start: 09-30-2021 End: 09-30-2021 SCAR REVISION [facility] Start: 03-28-2021 COVID-19 Vaccine (3 - Booster for Pfizer series) COVID-19 Vaccine (3 - Booster for Pfizer series) [facility] Start: 03-13-2021 Influenza vaccination Flu vaccine (# 1) [facility] Start: 2011 Screening for malign ant neoplasm of breast Breast cancer screen [facility] Start: 2006 Screening for malign ant neoplasm of colon [facility] Start: 1976 HIV screening HIV screen [facility] Start: 1973 Depression Screen Depression Screen [facility] Start: 1971 Lipid panel Lipid screen [facility] Start: 1961 Hepatitis C screening Hepatitis C sc reen [facility] Start: 1961 Screening for malign ant neoplasm of colon [facility] End: 09-30-2021 INITIATE PACU OXYGEN THERAPY PROTOCOL Initiate PACU Oxygen Therapy Protocol Respiratory Care Routine Continuous until discontinued starting 09/30/2021 [employer] Phone: Comment on above: Continuous until dis continued starting 09/30/2021 Oxygen therapy [[facility] Initiate Oxygen Therapy Protocol Respiratory Care Routine Daily until discontinued starting 09/30/2021 [employer] Phone: Comment on above: Daily until disconti nued starting 09/30/2021 End: 09-30-2021 , urine POCT , urine POCT Point of Care Testing Routine One Time for 1 Occurrences starting 09/30/2021 until 09/30/2021 [employer] Phone: Comment on above: One Time for 1 Occur rences starting 09/30/2021 until 09/30/2021 Immunizations Immunization Date Immunization Notes Care Provider [facility] 05-08-2023 Flu Shot - Documentation Purposes Only Deo Dean Other [facility] 05-08-2023 influenza virus vaccine, unspecified formulation Mirtha Roman TRANSIT OPERATOR Work Phone: [facility] 04-18-2023 Influenza, injectabl e, [place] Canine Kidney, preservative free, quadrivalent [facility] 04-15-2022 influenza, seasonal, injectable Deo Dean Other [facility] 04-15-2022 influenza, injectabl e, quadrivalent, preservative free [facility] 10-28-2021 zoster vaccine recombinant Deo Dean Other [facility] 08-26-2021 tetanus toxoid, redu enmanuel diphtheria toxoid, and acellular pertussis vaccine, adsorbed Deo Dean Other [facility] 08-26-2021 zoster vaccine recombinant Deo Garcias Other [facility] 04-24-2021 influenza, seasonal, injectable [facility] 10-26-2020 COVID-19 Pfizer Deo Kuns Other [facility] 10-04-2020 COVID-19 Pfizer Deo Kuns Other [facility] 04-17-2020 Influenza, injectabl e, [place] Canine Kidney, preservative free, quadrivalent [facility] 05-03-2018 influenza, seasonal, injectable Deo Kuns Other [facility] 05-03-2018 influenza, injectabl e, quadrivalent, preservative free [facility] 03-31-2018 SOLU-MEDROL 41 - 125 mg Brya n Kuns Other [facility] Other 05-13-2017 influenza, seasonal, injectable [facility] 04-18-2015 influenza, injectabl e, quadrivalent, preservative free [facility] 01-10-2013 SOLU-MEDROL 41 - 125 mg Brya n Kuns Other [facility] Other Payers Date Payer Category Payer Private Health Insurance [facility] [id number] 2024 Unknown [id number] 2023 Self-pay [id number] 2022 Unknown [id number] 2012 Unknown [id number] [id number] 1961 Unknown [id number] 2.16.840.1.290661.3.579. 2.593 1961 Unknown [id number] 2.16.840.1.645437.3.579. 2.1286 1961 Unknown [id number] 2.16.840.1.709833.3.579. 2.1259 1961 Unknown [id number] 2.16.840.1.868962.3.579. 2.1259 1961 Unknown [id number] 2.16.840.1.429535.3.579. 2.1259 1961 Unknown [id number] 2.16.840.1.217555.3.579. 2.1259 1961 Unknown [id number] 2.16.840.1.268677.3.579. 2.1259 1961 Unknown [id number] 2.16.840.1.141963.3.579. 2.1259 1961 Unknown [id number] 2.16.840.1.659230.3.579. 2.1259 1961 Unknown [id number] 2.16.840.1.351096.3.579. 2.196 1961 Unknown [id number] 2.16.840.1.739244.3.579. 2.196 1961 Unknown [id number] 2.16.840.1.356237.3.579. 2.196 1961 Unknown [id number] 2.16.840.1.733682.3.579. 2.196 1961 Unknown [id number] 2.16.840.1.593997.3.579. 2.196 1961 Unknown [id number] 2.16.840.1.293379.3.579. 2.196 1961 Unknown [id number] 2.16.840.1.497518.3.579. 2.196 1961 Unknown [id number] 2.16.840.1.595146.3.579. 2.196 1961 Unknown [id number] 2.16.840.1.005721.3.579. 2.196 1961 Unknown [id number] 2.16.840.1.680664.3.579. 2.196 1961 Unknown [id number] 2.16.840.1.977335.3.579. 2.196 1959 Unknown Unknown [id number] 2.16.840.1.846860.3.579. 2.531 Social History Date Type Detail Facility Start: 07-30-2021 End: 02-03-2023 Tobacco smoking status [facility] Never smoked tobacco [facility] Other Start: 07-30-2021 End: 02-03-2023 Tobacco use and exposure Smokeless tobacco non-user [employer] Phone: Start: 09-16-2021 End: 09-30-2021 Alcohol intake Current drinker of alcohol (finding) [employer] Phone: Start: 07-30-2021 History SDOH Alcohol Comment 1 time a month [employer] Phone: Start: 1960 Sex Assigned At Not on file [employer] Phone: Start: 09-20-2021 End: 09-30-2021 Exposure to SARS-CoV-2 (event) Not sure [employer] Phone: Start: 05-27-2023 End: 11-28-2024 Sex Assigned At [facility] Start: 1960 Sex Assigned At Female [facility] Start: 01-06-2024 End: 11-28-2024 Alcoholic beverage intake Ex-drinker (finding) [facility] Start: 05-27-2023 End: 11-28-2024 History of Social function [facility] Within the last year , have you been afraid of your partner or ex-partner? No [facility] Frequency of Communication with Friends and Family Not on file [facility] Do you belong to any clubs or organizations such as latter day groups, unions, fraternal or athletic groups, or school groups? Yes [facility] Are you now , , , , never or living with a partner? [facility] How often to you hav e a drink containing alcohol? Monthly or less [facility] How often do you hav e 6 or more drinks on 1 occasion? Never [facility] Do you feel stress - tense, restless, nervous, or anxious, or unable to sleep at night because your mind is troubled all the time - these days [OSQ] Rather much [facility] (I/We) worried wheth er (my/our) food would run out before (I/we) got money to buy more. Never true [facility] Start: 09-18-2023 Alcohol Comment caffeine intake: 1-2 cups per day ; [address] strange a day [facility] Start: 05-11-2023 Gender identity Identifies as female gender (finding) [facility] Start: 10-25-2024 Alcohol Comment caffeine intake: 1-[address] strange a day [facility] Functional Status Date Assessment Result Facility 11-28-2024 Patient Health Quest ionnaire 2 item (PHQ-2) [Reported] [facility] Clinical Notes 03-22-2012 to 11-28-2024 Quentin Koehler MD - 11/28/2024 7:00 PM Dorina Koehler MD - 10/25/2024 1:00 PM Skyla Britton MA - 08/12/2024 1:40 PM Denice Roman NP - 04/07/2024 1:00 PM EDT Note Date & Type Note Facility 11-28-2024 History of Present illness Narrative Images from the original note were not included. Megan Smith is a 64 y.o. female presents with chief complaint of Poison Cathy HPI: HPI X2 days worked in yard this past SUBJECTIVE: MEDICATIONS: Current Outpatient Medications Medication Instructions albuterol HFA 90 mcg/act inhaler 1 puff, Inhalation, Every 4 hours PRN busPIRone (BUSPAR) 10 mg, Oral, 2 times daily fluticasone (Flonase) 50 MCG/ACT nasal spray 2 sprays, Each Nostril, Daily, Shake gently. Before first use, prime pump. After use, clean tip and replace cap. 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 strange a day Drug use: Never Depression: Not at risk (11/28/2024) PHQ-2 PHQ-2 Score: 0 REVIEW OF SYMPTOMS: Review of Systems OBJECTIVE: Visit Vitals BP 122/66 (BP Location: Left arm, Patient Position: Sitting, BP Cuff Size: Adult) Pulse 70 Resp 18 Ht 5' 4 Wt 111 lb 6.4 oz SpO2 98% BMI 19.12 kg/m Smoking Status Never BSA 1.51 m Physical Exam Forearms with linear red streaks and pustules ASSESSMENT AND PLAN: Assessment/Plan Problem List Items Addressed This Visit None Visit Diagnoses Poison cathy dermatitis - Primary Relevant Medications methylPREDNISolone (Medrol Dospak) 4 MG tablets documented in this encounter [facility] 10-25-2024 History of Present illness Narrative Megan Smith is a 64 y.o. female presents with chief complaint of Suture / Staple Removal HPI: Patient is here for suture removal on the left pinkie finger. Suture / Staple Removal History of Present Illness The patient presents for suture removal. Sutures were placed on 10/18/2024, and they have started to itch. One of the sutures came out the next day after it was placed. Occasional throbbing pain at night is reported. She saw a vocational ed instructor, Dr. Beach, for a low white blood cell count. A bone marrow test was performed. The next appointment with the vocational ed instructor is scheduled for 12/2024. SUBJECTIVE: MEDICATIONS: Current Outpatient Medications Medication Instructions albuterol HFA 90 mcg/act inhaler 1 puff, Inhalation, Every 4 hours PRN busPIRone (BUSPAR) 10 mg, Oral, 2 times daily fluticasone (Flonase) 50 MCG/ACT nasal spray 2 sprays, Each Nostril, Daily, Shake gently. Before first use, prime pump. After use, clean tip and replace cap. PARoxetine (PAXIL) 20 mg, Oral, Every morning REVIEW OF SYMPTOMS: Review of Systems OBJECTIVE: Visit Vitals Temp 97.3 F Wt 110 lb BMI 18.88 kg/m Smoking Status Never BSA 1.5 m Physical Exam Constitutional: Appearance: Normal appearance. She is normal weight. Musculoskeletal: Cervical back: Normal range of motion and neck supple. Skin: General: Skin is warm and dry. Neurological: General: No focal deficit present. Mental Status: She is alert and oriented to person, place, and time. Mental status is at baseline. Psychiatric: Mood and Affect: Mood normal. Behavior: Behavior normal. Thought Content: Thought content normal. Judgment: Judgment normal. Sutures removed with out difficult laceration clear dry and healing , steri strips applied ASSESSMENT AND PLAN: Assessment/Plan Problem List Items Addressed This Visit None Visit Diagnoses Laceration of left little finger without foreign body without damage to nail, subsequent encounter - Primary Assessment & Plan 1. Suture removal. - Sutures were placed on 10/18/2024. One of the sutures came out the next day after placement. - Sutures were removed today, and Steri-Strips were applied. - Advised to avoid immersing hands in water and to wear gloves during showers, ensuring immediate drying post-shower. - Follow-up scheduled for 02/2025 or sooner if any complications arise. 2. Leukopenia. - Blood count checked in 02/2024 showed low white blood cells. - Multiple Wire Sawyer Dr. Carroll Concepcion and Florentino performed a bone marrow biopsy. - Multiple Wire Sawyer is monitoring the condition, with the next appointment possibly in 12/2024. - Plan to call the vocational ed instructor's office to confirm the next appointment date. PROCEDURE Procedure: Suture removal from the hand All questions were answered and agreement to proceed was given after the following Pre-Procedure details were reviewed: - Risks and Benefits: Discussed the potential for minor discomfort during suture removal and the benefit of proper wound healing. - Side effects: Discussed the possibility of minor bleeding and temporary tenderness at the site. - Consent: Verbal consent was obtained from the patient. Intra-Procedure: - Time-Out: Confirmed patient identity and procedure to be performed. - Site Preparation: The hand was cleaned and prepared for suture removal. - Hemostasis: Minor bleeding was controlled with direct pressure. - Closure: Steri-Strips were applied to support the wound. Post-Procedure: - Tolerance Level: Patient tolerated the procedure well. - Home Care Instructions: Advised to avoid soaking the hand in water and to wear a glove while showering. Instructed to keep the area dry and to avoid dishwashing. documented in this encounter [facility] 08-12-2024 History of Present illness Narrative Images from the original note were not included. Megan Smith is a 64 y.o. female presents with chief complaint of Anxiety HPI: Presents to the office for a follow up for her anxiety. Reports she feels great and the medications are working well. She is only taking 5mg Buspar daily instead of 20mg BID but reports the 5mg dose is working well for her. Has been following up with hematology for Leukopenia. Last saw them last month where they meena blood and checked her WBC count. Reports she has a follow up appointment with them in 6 months. Denies any concerns at this appointment. SUBJECTIVE: MEDICATIONS: Current Outpatient Medications Medication Instructions albuterol HFA 90 mcg/act inhaler inhale 1 puff by mouth and INTO THE LUNGS every 4 hours if needed busPIRone (BUSPAR) 10 mg, Oral, 2 times daily fluticasone (Flonase) 50 MCG/ACT nasal spray 2 sprays, Each Nostril, Daily, Shake gently. Before first use, prime pump. After use, clean tip and replace cap. 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 strange a day Drug use: Never Depression: Not at risk (04/07/2024) PHQ-2 PHQ-2 Score: 1 REVIEW OF SYMPTOMS: Review of Systems Constitutional: Negative. HENT: Negative. Respiratory: Negative. Cardiovascular: Negative. Gastrointestinal: Negative. Genitourinary: Negative. Musculoskeletal: Negative. Neurological: Negative. Psychiatric/Behavioral: Negative. OBJECTIVE: Visit Vitals BP 122/76 (BP Location: Left arm, Patient Position: Sitting, BP Cuff Size: Adult) Pulse 83 Resp 18 Ht 5' 4 Wt 111 lb 3.2 oz SpO2 99% BMI 19.09 kg/m Smoking Status Never BSA 1.51 m Physical Exam Vitals and nursing note reviewed. Constitutional: Appearance: Normal appearance. HENT: Head: Normocephalic and atraumatic. Cardiovascular: Rate and Rhythm: Normal rate and regular rhythm. Heart sounds: Normal heart sounds. Pulmonary: Effort: Pulmonary effort is normal. Breath sounds: Normal breath sounds. Skin: General: Skin is warm and dry. Neurological: General: No focal deficit present. Mental Status: She is alert and oriented to person, place, and time. Psychiatric: Mood and Affect: Mood normal. Behavior: Behavior normal. ASSESSMENT AND PLAN: Assessment/Plan Problem List Items Addressed This Visit Other Anxiety Relevant Medications PARoxetine (Paxil) 20 MG tablet Taking Buspar 5mg daily instead of 10mg BID. Is content with her mood with these medications. Continue following up with Hematology. Follow up in 7 months for Annual wellness documented in this encounter [facility] 06-02-2024 Note CLINICAL HISTORY: Bl ood dyscrasia PROCEDURE: CT guided bone marrow biopsy was performed. SEDATION: No sedation was utilized and today's procedure. TECHNIQUE AND FINDINGS: The procedure, risks and benefits were explained the patient, written consent was obtained. The patient was place in the prone position on the CT gantry. A preprocedure scan was performed. This redemonstrated a safe site for access to the left iliac bone. The skin was marked, prepped and draped in usual sterile fashion. Maximum sterile barrier was utilized. A timeout was completed. Under CT fluoro guidance, a 13-gauge [employer] express bone biopsy system was advanced into the left iliac bone. Two aspirates were obtained as well as a core biopsy. The needle was removed and hemostasis was achieved. Post procedure scan did not demonstrate a complication. The patient tolerated the procedure well. IMPRESSION: Technically successful and uneventful CT guided bone marrow biopsy as detailed above. Final Dictated by: Jeronimo Spicer MD Dictated DT/TM: 06.02.2024 3:05 pm Signed by: Jeronimo Spicer MD Signed (Electronic Signature): 06.02.2024 3:05 pm (If Report Is Signed, Electronically Signed in Other Vendor System) [facility] Comment on above: Order Comment: send for AML & MDS FISH panel 06-02-2024 Note Patient Education Ma terials Name: Valente Smithmirta Torres Current Date: 06/02/2024 10:14:03 [place] : 1960 The following sheet(s) are the Patient Education Leaflets for Megan Smith IMAGING DISCHARGE INSTRUCTIONS Bone Marrow Biopsy DISCHARGE INSTRUCTIONS: Activity: May resume regular activity. Diet: Drink plenty of fluids. May resume your previous diet. Procedure Site Care: Keep bandage clean and dry for 24 hours. You may change or remove your bandage the next day. You may shower the next day. Your incision was closed with skin adhesive. It will take approximately 7-10 days for the adhesive to fall off. No soaking in a tub or swimming until adhesive falls off and incision is well healed. You may take yiwn-khx-thpzzor pain medication as directed for any discomfort. Specific Procedure Information: The procedure you had today was called a (an) CT Guided Bone Marrow Biopsy. FOLLOW-UP CARE: If you have any questions or problems regarding your procedure, like abnormal bleeding or bruising to procedure site, abnormal drainage from the procedure site or increased fever, please call the health care provider that order the test or go straight to your local emergency department. Please follow up with Dr Aguilera for continued care. Thank you for choosing [facility] for your care. IS IT A STROKE? Remember BE FAST and Check for these signs: BALANCE Feeling dizzy or have loss of balance? Eyes Any vision Changes? FACE Does the face look uneven? ARM Does one arm drift down? SPEECH Does their speech sound strange? TIME Call at any sign of stroke Heart Attack Signs Chest discomfort: Most heart attacks involve discomfort in the center of the chest and lasts more than a few minutes, or goes away and comes back. It can feel like uncomfortable pressure, squeezing, fullness or pain. Discomfort in upper body: Symptoms can include pain or discomfort in one or both arms, back, neck, jaw or stomach Shortness of breath: With or without discomfort Other signs: Breaking out in a cold sweat, nausea, or lightheaded Remember, MINUTES DO MATTER. If you experience any of these heart attack warning signs, call to get immediate medical attention! Thank you for choosing [facility] Patient and Family Resources COVID vaccinations are offered at most retail pharmacies or your local health department. For more information, go to [email or web address]. If you received a COVID vaccine while at the hospital, you may need to schedule an appointment to receive your second dose. For the Pfizer vaccine: a second dose at least 21 days after the first dose. For the Moderna vaccine: second dose at least 28 days after the first dose. For the Tim and Tim vaccine: no second dose is required. [facility] Poison Help line: [facility] Crisis Hotline: [place] Suicide and Crisis Lifeline: [address] Quit Line: [place] [address] [address], [place]: [phone] For the disposal of all unused and/or prescription medications (including opioid/narcotic medications), [facility] has two medication collection boxes: 1) at the [facility]?s Office and 2) at the [facility]. [facility] 04-07-2024 History of Present illness Narrative Images from the original note were not included. Megan Smith is a 63 y.o. female presents with chief complaint of Anxiety HPI: Over the past 2 weeks, how often have you been bothered by any of the following problems? Little interest or pleasure in doing things: Not at all Feeling down, depressed, or hopeless: Several days Trouble falling or staying asleep, or sleeping too much: Several days Feeling tired or having little energy: Not at all Poor appetite or overeating: Not at all Feeling bad about yourself - or that you are a failure or have let yourself or your family down: Not at all Trouble concentrating on things, such as reading the newspaper or watching television: Several days Moving or speaking so slowly that other people could have noticed? Or the opposite - being so fidgety or restless that you have been moving around a lot more than usual.: Not at all Thoughts that you would be better off or hurting yourself in some way: Not at all Patient Health Questionnaire-9 Score: 3 Over the last 2 weeks, how often have you been bothered by any of the following problems? Feeling nervous, anxious, or on edge: More than half the days Not being able to stop or control worrying: Nearly every day Worrying too much about different things: Nearly every day Trouble relaxing: Several days Being so restless that it is hard to sit still: Nearly every day Becoming easily annoyed or irritable: Not at all Feeling afraid as if something awful might happen: Not at all GABRIELA-7 Total Score: 12 Anxiety SUBJECTIVE: MEDICATIONS: ALLERGIES Current Outpatient Medications Medication Instructions albuterol HFA 90 mcg/act inhaler inhale 1 puff by mouth and INTO THE LUNGS every 4 hours if needed busPIRone (BUSPAR) 10 mg, Oral, 2 times daily fluticasone (Flonase) 50 MCG/ACT nasal spray 2 sprays, Each Nostril, Daily, Shake gently. Before first use, prime pump. After use, clean tip and replace cap. PARoxetine (PAXIL) 20 mg, Oral, Every morning Rimegepant Sulfate 75 MG tablet dispersible 1 tablet Allergies Allergen Reactions Aspirin Anaphylaxis PAST MEDICAL HISTORY: SOCIAL HISTORY SURGICAL HISTORY: Past Medical History: Diagnosis Date Carpal tunnel syndrome, bilateral Hyperlipidemia (CMS/HCC) 03/01/2024 Social History Tobacco Use Smoking status: Never Smokeless tobacco: Never Substance Use Topics Alcohol use: Not Currently Comment: caffeine intake: 1-2 cups per day ; [address] 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 HENT: Negative. Eyes: Negative. Respiratory: Negative. Cardiovascular: Negative. Gastrointestinal: Negative. Genitourinary: Negative. Musculoskeletal: Negative. Skin: Negative. Neurological: Negative. Psychiatric/Behavioral: Negative. All other systems reviewed and are negative. Hematological: Negative. Endocrine: Negative. Allergic/Immunologic: Negative. OBJECTIVE: Vitals: 04/07/24 1257 BP: 120/74 Pulse: 72 Resp: 18 SpO2: 98% Physical Exam Vitals and nursing note reviewed. Constitutional: Appearance: Normal appearance. HENT: Head: Normocephalic and atraumatic. Eyes: Conjunctiva/sclera: Conjunctivae normal. Pulmonary: Effort: Pulmonary effort is normal. Musculoskeletal: General: Normal range of motion. Cervical back: Normal range of motion. Skin: General: Skin is warm and dry. Neurological: General: No focal deficit present. Mental Status: She is alert and oriented to person, place, and time. Psychiatric: Mood and Affect: Mood normal. Behavior: Behavior normal. ASSESSMENT AND PLAN: Assessment/Plan Diagnoses and all orders for this visit: Anxiety - PARoxetine (Paxil) 20 MG tablet; Take 1 tablet (20 mg) by mouth in the morning. Is content with her mood at this time and with low dose PRN buspar. She has seen hematology and she has elected to hold the bone marrow aspiration until her repeat appt with them in 4 months. FU at that time No follow-ups on file. documented in this encounter [facility] 03-01-2024 History of Present illness Narrative Images from the original note were not included. Megan Smith is a 63 y.o. female presents with chief complaint of Annual Exam HPI: Well Adult Physical Patient here for a comprehensive physical exam.The patient reports problems - Anxiety Do you take any herbs or supplements that were not prescribed by a doctor? no Are you taking calcium supplements? no Are you taking aspirin daily? no She is anxious and also just lost her pet SUBJECTIVE: MEDICATIONS: ALLERGIES Current Outpatient Medications Medication Instructions albuterol HFA 90 mcg/act inhaler inhale 1 puff by mouth and INTO THE LUNGS every 4 hours if needed fluticasone (Flonase) 50 MCG/ACT nasal spray 2 sprays, Each Nostril, Daily, Shake gently. Before first use, prime pump. After use, clean tip and replace cap. PARoxetine (PAXIL) 20 mg, Oral, Every morning Rimegepant Sulfate 75 MG tablet dispersible 1 tablet SUMAtriptan (Imitrex) 100 MG tablet Allergies Allergen Reactions Aspirin Anaphylaxis PAST MEDICAL HISTORY: SOCIAL HISTORY SURGICAL HISTORY: Past Medical History: Diagnosis Date Carpal tunnel syndrome, bilateral Social History Tobacco Use Smoking status: Never Smokeless tobacco: Never Substance Use Topics Alcohol use: Not Currently Comment: caffeine intake: 1-2 cups per day ; [address] 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 HENT: Negative. Eyes: Negative. Respiratory: Negative. Cardiovascular: Negative. Gastrointestinal: Negative. Genitourinary: Negative. Musculoskeletal: Negative. Skin: Negative. Neurological: Negative. Psychiatric/Behavioral: Positive for agitation. All other systems reviewed and are negative. Hematological: Negative. Endocrine: Negative. Allergic/Immunologic: Negative. OBJECTIVE: Vitals: 03/01/24 0925 BP: 128/78 Pulse: 76 Resp: 18 SpO2: 98% Physical Exam Vitals and nursing note reviewed. Constitutional: Appearance: Normal appearance. HENT: Head: Normocephalic and atraumatic. Right Ear: Tympanic membrane normal. Left Ear: Tympanic membrane normal. Nose: Nose normal. Mouth/Throat: Mouth: Mucous membranes are moist. Pharynx: Oropharynx is clear. Eyes: Pupils: Pupils are equal, round, and reactive to light. Cardiovascular: Rate and Rhythm: Normal rate and regular rhythm. Heart sounds: Normal heart sounds. Pulmonary: Effort: Pulmonary effort is normal. Breath sounds: Normal breath sounds. Chest: Comments: No masses Abdominal: General: Bowel sounds are normal. Palpations: Abdomen is soft. Musculoskeletal: General: Normal range of motion. Cervical back: Normal range of motion. Skin: General: Skin is warm and dry. Neurological: General: No focal deficit present. Mental Status: She is alert. Psychiatric: Mood and Affect: Mood normal. ASSESSMENT AND PLAN: Assessment/Plan Diagnoses and all orders for this visit: Well adult exam - CBC and differential; Future - Comprehensive metabolic panel; Future - Lipid panel; Future Healthy diet and keep active. Annual eye and dental exam. screen labs, cancer screens and vaccines reviewed an updated as needed. Encounter for screening mammogram for malignant neoplasm of breast Current on testing Anxiety - TSH; Future - PARoxetine (Paxil) 20 MG tablet; Take 1 tablet (20 mg) by mouth in the morning. - busPIRone (Buspar) 10 MG tablet; Take 1 tablet (10 mg) by mouth in the morning and 1 tablet (10 mg) before bedtime. Not at goal even with the increase in her paxil will add buspar. FU in 4-6 weeks. Call if any problems Migraine without aura and without status migrainosus, not intractable (CMS/HCC) Stable has not needed to medicate in a long time Weight loss - CBC and differential; Future - Comprehensive metabolic panel; Future - TSH; Future Stable but not improved. Will see how she does with better control of her anxiety Leukopenia, unspecified type - CBC and differential; Future - Comprehensive metabolic panel; Future - TSH; Future Has not seen hematology has been stable. Check labs today H/O hysterectomy for benign disease No follow-ups on file. documented in this encounter [facility] 06-29-2023 Evaluation note Encounter Date Diagnosis Assessment Notes Jun, Leukopenia, unspecified type (ICD-10 - D72.819) Patient has been under the care of vocational ed instructor for the known leukopenia. Patient is going every 6 months and thus far work up has been negative per patient report. I do recommend she continue with following with speciality. I have requested she get community outreach lab for next visit. Jun, Weight loss, unintentional (ICD-10 - R63.4) Weight is currently 113 and last year this time she was 124 which would be a healthier weight for her. Patient denies trying to lose weight. She is retired now. She does have issues with sleep. She will take melatonin or Tylenol PM on occasion. She has gone back on Paxil over the summer for anxiety. I do want her weight to stabilize or even gain some. I will want lab on her for the next visit. Community outreach lab suggested and paperwork provided. Jun, Anxiety (ICD-10 - F41.9) Patient was restarted on Paxil over the summer by a nurse practioner. I do recommend getting lab work on her prior to the next office visit in 6 months [facility] Other 12-05-2022 Evaluation note* Encounter Date Diagnosis Assessment Notes Treatment Notes Treatment Clinical Notes Jun, Hyperlipidemia (ICD-10 - E78.5) Review of pt's blood work which reveals an LDL of 125, and total cholesterol of 205. Encouraged to watch diet and increase exercise regimen; we will continue to monitor. Jun, Leukopenia, unspecified type (ICD-10 - D72.819) Review of pt's blood work which reveals a WBC count of 2.9, which remains unchanged over the last few years. I recommended pt be evaluated by a vocational ed instructor. She does have an insurance that is not accepted by many local places. I advised that it is important she have this leukopenia evaluated and discussed the possible causes of this. She is in agreement with this, therefore a referral was initiated today. She is switching to an insurance with a lower deductable next year, so I encouraged her to schedule her appointment for the begining of July. We will continue to monitor. Jun, Crackling sound in left ear (ICD-10 - H93.8X2) Upon examination, pt does have a small amout of fluid in her ear, though no infection is visualized. Pt states she does sometimes use an OTC nasal spray. I recommended she use Fluticasone twice a day for a week, then decrease to once daily. I did provide her with this medication today, and we will continue to monitor. [facility] Other 11-10-2022 Evaluation note* Encounter Date Diagnosis Assessment Notes Treatment Notes Treatment Clinical Notes May, Leukopenia (ICD-10 - D72.819) [facility] Other 07-05-2022 Evaluation note* Encounter Date Diagnosis Assessment Notes Treatment Notes Treatment Clinical Notes Jan, Transient ischemic attack (TIA) (ICD-10 - G45.9) [facility] Other 06-06-2022 Evaluation note* Encounter Date Diagnosis Assessment Notes Treatment Notes Treatment Clinical Notes Dec, Anxiety (ICD-10 - F41.9) [facility] Other 03-18-2022 Evaluation note* Encounter Date Diagnosis Assessment Notes Treatment Notes Treatment Clinical Notes Sep, Blood in stool (ICD-10 - K92.1) [facility] Other 03-16-2022 Hospital Discharge instructions* Instructions* Goldie Siegel RN - 09/25/2021 Activity You have had anesthesia today Do not drive or operate heavy equipment, consume alcoholic beverages, important decisions for 24 hours, or while you are taking pain medication: Take your time changing positions today. You may feel light headed or dizzy if you move too quickly. Continue your home medications as ordered by your physician. Avoid aspirin and over the counter medications (including vitamins, and herbal supplements) for 3 days, unless otherwise instructed by your physician. Rest for the next 24 hours. Getting enough rest will help you recover. No heavy lifting or straining right after surgery. No strenuous activities as your doctor or other health healthcare facility administrator recommends. Examples of these might include weightlifting, running, or playing sports. Ask your doctor when you can drive again. You may bathe/shower, keeping bandage clean and dry after 48 hours Sleep with the head of the bed elevated or sleep in a recliner Diet You can eat your normal diet when you feel well. You should start off with bland foods like chickensoup, toast, or yogurt. Then advance as tolerated. Drink plenty of fluids (unless your doctor tells you not to). Your urine should be very lightly colored without a strong odor. Try to avoid constipation and straining with bowel movements. You may want to increase fiber intake. If you have not had a bowel movement after a couple of days, ask your doctor about taking a stool softener. Medicines If the doctor gave you a prescription medicine for pain, take it as needed as prescribed. If you are not taking a prescription pain medicine, ask your doctor what type of [id number]-[id number] medicine, you can take. If you think your pain medicine is making you sick to your stomach, take with food If your doctor prescribed antibiotics, take them until prescription is gone, as directed. Do not stop taking them just because you feel better. You need to take the full course of antibiotics. Care of the cut (incision) Do not change dressing You may reinforce dressing with gauze if needed If you have strips of tape on the cut (incision) the doctor made, leave the tape on until it falls off. You may cover the area with a gauze bandage if it weeps or rubs against clothing. Keep the area clean and dry. Call your doctor now or seek immediate medical care if: You have pain that does not get better after you take pain medicine. You have a fever over 101 F. You have chills You have signs of infection, such as: Increased pain, swelling, warmth, or redness. Red streaks leading from the incision. Pus draining from the incision. [facility]: [phone] 317-266903-07-2022 Hospital Discharge instructions* Instructions* Deo Tabor RN - 09/16/2021 Preoperative Instructions: Stop eating solid foods at midnight the night prior to your surgery. Stop drinking clear liquids at midnight the night prior to your surgery. Arrive at the surgery center (3rd entrance) on _[id number] by 1030 . Please stop any blood thinning medications as directed by your surgeon or prescribing physician. Failure to stop certain medications may interfere with your scheduled surgery. These may include: Aspirin, Coumadin, Plavix, NSAIDS (Motrin, Aleve, Advil, Mobic, Celebrex), Eliquis, Pradaxa, Xarelto, Fish oil, and herbal supplements. PLEASE CHECK WITH PRESCRIBING PHYSICIAN and DR. JONES as to when tohold PLAVIX> You may continue the rest of your medications through the night before surgery unless instructed otherwise. Day of surgery please take only the following medication(s) with a small sip of water: Paxil Please shower with antibacterial soap and water and shampoo hair. Reminders: -If you are going home the day of your procedure, you will need a family member or friend to stay during the procedure and drive you home after your procedure. Your public transit trolley driver must be 18 years of age or older and able to sign off on your discharge instructions. -If you are going home the same day of your surgery, someone must remain with you for the first 24 hours after your surgery if you receive sedation or anesthesia. -Please do not wear any jewelery, lotions, makeup, contacts or body piercing the day of surgery documented in this [employer] Phone: [phone] 547-975903-07-2022 History of Present illness Narrative* Deo Tabor RN - 09/16/2021 12:00 PM EST Spoke with Dr. Caban spinner iron Heather regarding Holding of Plavix instructions for this case here 09-30-21. Pt misunderstood office instructions. Reviewed w pt should HOLD Aspirin/ products for 2 weeks prior but that Holding of Plavix should be as directed by Dr. Jones and prescribing physician. Dr. Caban office will call pt to clarify request to hold Plavix only 3-5- days. documented in this [employer] Phone: [phone]) [phone] Evaluation note* Encounter Date Diagnosis Assessment Notes Treatment Notes Treatment Clinical Notes Aug, Numbness on left side (ICD-10 - R20.0) Aug, Transient ischemic attack (TIA) (ICD-10 - G45.9) I did review Dr. Guillermo consult note from 07/17/21 in which he did believe she has mini strokes prior. Patient was not found to have MS. Dr. Zamora did recommend patient be on Plavix and Atorvastatin, in which I agreed. Patient is now bruising from the Plavix. I did advise patient to take the Plavix every other day. Patient is to continue to follow with Dr. Zamora. [facility] Other 12-08-2021 Evaluation note* Encounter Date Diagnosis Assessment Notes Treatment Notes Treatment Clinical Notes Jun, Numbness on left side (ICD-10 - R20.0) Jun, Abnormal head MRI (ICD-10 - R93.0) [facility] Other 11-22-2021 Evaluation note* Encounter Date Diagnosis Assessment Notes Treatment Notes Treatment Clinical Notes May, Numbness on left side (ICD-10 - R20.0) Imaging reviewed with the patient .No significant evidence of carotid stenosis, aneurysm, stroke or mass.As above the patient denies any futher episodes of paresthesia or visual changes. Discussion was had regarding the work up to evaluate for MS . An MRI is recommended and ordered .Neurology referral will be considered. May, Sinusitis (ICD-10 - J32.9) Paranasal sinusitis noted upon review of CT results.The patient followed with ENT for several years in the past. I did prescribe the above medication and encouraged pt to increase fluid intake, throat lozenges or gargle with mouth wash as needed. Pt is to also take OTC pain medication and fever reducers as needed. [facility] Other 10-28-2021 Evaluation note* Encounter Date Diagnosis Assessment Notes Treatment Notes Treatment Clinical Notes Apr, Numbness on left side (ICD-10 - R20.0) Patient reports having whole body numbness twice now in the last couple of weeks. She denies any known factors that may have caused this. She denies any headache or any residual effects following the episodes. Upon exam, she appears to be neurologically intact. I did suggest she obtain the above imaging to rule out abnormalities. Patient is in agreement. We will continue to monitor. Apr, Dizziness (ICD-10 - R42) Patient reports feeling dizzy slightly during the episodes when her whole body goes numb. I did suggest she obtain the above imaging to rule out abnormalities. Patient is in agreement. Apr, History of concussion (ICD-10 - Z87.820) Patient reports falling off of a ladder landing on her head resulting in a severe concussion approx in 2010. Above imaging ordered to rule out abnormalities. 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 Patient has both ovaries 10/11/2009 Surgical History liposuction Surgical History Polyp removed from sinus cavity Dr. 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 Patient has both ovaries 10/11/2009 Surgical History liposuction Surgical History Polyp removed from sinus cavity Dr. Hernandez 07/2021 Hospitalization History see above [facility] Other Evaluation note* Diagnosis Encounter for cosmetic surgery- Primary Other plastic surgery for unacceptable cosmetic appearance documented in this encounter [employer] Work Phone: evaluation noteNo InformationNort Plibber Other Evaluation noteNo assessment information available [facility] Work Phone: Evaluation note* Author Sun Bustamante [facility] Authored February 29, 2024 12 :52pm The above note written by Maine Bustamante LPN, acting as human recorder, note dictated by Dr. Deo Dean. [facility] Work Phone: Evaluation note* Diagnosis Well adult exam- Primary Routine general medical examination at a health care facility Encounter for screening mammogram for malignant neoplasm of breast Anxiety Anxiety state, unspecified Migraine without aura and without status migrainosus, not intractable (CMS/HCC) Weight loss Loss of weight Leukopenia, unspecified type H/O hysterectomy for benign disease [facility] Diagnosis Anxiety Anxiety state, unspecified [facility] Diagnosis Dyspnea, unspecified type- Primary [facility]* Diagnosis Laceration of left little finger without foreign body without damage to nail, subsequent encounter- Primary [facility] Diagnosis Poison cathy dermatitis- Primary documented in this encounter [facility] Summary Purpose Family History No Family History Records Found Relationship Condition Age at Onset Recorded Date/T ash Not Specified Hypertension Unknown Diabetes mellitus Unknown High blood cholesterol Unknown Relationship Condition Age at Onset Recorded Date/T ash Not Specified Hypertension Unknown Diabetes mellitus Unknown High blood cholesterol Unknown family member Family history of ma lignant neoplasm of breast Unknown Not Specified Malignant neoplasm Unknown Hypertension Unknown Relationship Condition Age at Onset Recorded Date/T ash mother Hypertension Unknown Diabetes mellitus Unknown High blood cholesterol Unknown Malignant neoplasm Unknown family member Family history of ma lignant neoplasm of breast Unknown mother Malignant neoplasm Unknown Hypertension Unknown Advance Directives No Advanced Directives Records Found Advance Directive Response Recorded Date/ Time Advance Directives No June 5:43pm Advance Directive Response Recorded Date/ Time Advance Directives No June 4:43pm Advance Directive Response Recorded Date/ Time Advance Directives No August 12, 2023 5:01pm Reason for Referral Reason Evaluate and Treat Diagnosis 1 Leukopenia, unspecif ied type (D72.819) Referral Organization [facility] [place] Referring Provider First Name Deo Referring Provider Last Name Jermaine Referring Provider Specialty Family Prac brice Referred Organization [facility] Referred Provider Jay Kaba II Referred Address [address] [place] [address] [place],[address] Referred Provider Specialty Internal Med icine Referral Priority Routine Reason colonoscopy- bright red blood with bowel movement Diagnosis 1 Blood in stool (K92. 1) Referral Organization [facility] [place] Referring Provider First Name Deo Referring Provider Last Name Jermaine Referring Provider Specialty Family Prac brice Referred Organization [facility] Referred Provider Nick Matthews Referred Address [address] [facility] [facility] ,[place], [place],[address] Referred Provider Specialty Gastroentero logy Referral Priority Routine Reason consult and treat Diagnosis 1 Numbness on left luis e (R20.0) Referral Organization [facility] [place] Referring Provider First Name Deo Referring Provider Last Name Jermaine Referring Provider Specialty Family Prac brice Referred Organization [facility] Referred Address [address] [facility], [place],[address] Referred Provider Specialty Neurology Referral Priority Routine General Notes Belem Dean 06/12 12:18:13 PM > Chief Complaint and Reason for Visit Chief Complaint complete tsh Chief Complaint complete tsh cbc Chief Complaint complete tsh cbc Complete Chief Complaint 8 month f/u Reason for Visit Anxiety Hyperlipidemia Weight loss, unintentional Additional Source Comments Care Teams (unrecognized sec tion and content) Traffic Representative Relationship Specialty Start Date End Date Deo Dean DO PCP - General Family Medicine 07/30/21 Traffic Representative Relationship Specialty Start Date End Date Deo Dean DO PCP - General Family Medicine 07/30/21 Team Status: Inactive Member Role Status Dates Deo Dean DO Primary Care Provider Active Outreach Community Attending Provider Active Team Status: Active Member Role Status Dates Deo Dean DO Primary Care Provider Active Team Status: Inactive Member Role Status Dates Deo Dean DO Primary Care Provider Active Sta rt: September 26, 2023 End: September 26, 2023 Outreach Community Attending Provider Active Sta rt: September 26, 2023 End: September 26, 2023 Team Status: Inactive Member Role Status Dates Deo Dean DO Primary Care Provide r, Attending Provider Active Start: February 29, 2024 End: February 29, 2024 Traffic Representative Relationship Specialty Start Date End Date Quentin Koehler MD [address] [place] [address] PCP - General Family Medicine 11/24/22 Traffic Representative Relationship Specialty Start Date End Date Quentin Koehler MD [address] [place] [address] PCP - General Family Medicine 11/24/22 Traffic Representative Relationship Specialty Start Date End Date Quentin Koehler MD [address] [place] [address] PCP - General Family Medicine 11/24/22 Traffic Representative Relationship Specialty Start Date End Date Quentin Koehler MD [address] [facility] [place] [address] PCP - General Family Medicine 11/24/22 Traffic Representative Relationship Specialty Start Date End Date Quentin Koehler MD [address] [place] [address] PCP - General Family Medicine 11/24/22 Traffic Representative Relationship Specialty Start Date End Date Quentin Koehler MD [address] [place] [address] PCP - General Family Medicine 11/24/22 Traffic Representative Relationship Specialty Start Date End Date Quentin Koehler MD [address] [place] [address] PCP - General Family Medicine 11/24/22 Traffic Representative Relationship Specialty Start Date End Date Quentin Koehler MD [address] [place] [address] PCP - General Family Medicine 11/24/22 Ordered Prescriptions (unrec ognized section and content) Prescription Sig Dispensed Refills Start Date End Da te oxyCODONE-acetaminophen (PERCOCET) 5-325 MG per tabletIndications:Encou nter for cosmetic surgery Take 1 tablet by mouth every 6 hours as needed for Pain for up to 7 days. Intended supply: 7 days. Take lowest dose possible to manage pain 28 tablet 0 09/30/2021 10/07/2021 cephALEXin (KEFLEX) 500 MG capsule Take 1 capsule by mouth 3 times daily for 15 doses Take 1 tablet 3 times a day for 5 days 15 capsule 0 09/30/2021 10/05/2021 Scheduled Active and Recently Administ ered Medications (unrecognized section and content) Medication Order 09/28/2021 09/29/2021 09/30/2021 aprepitant (EMEND) capsule 40 mg 40 mg, Oral, ONCE, On Thu09/30/21 at 1600, For 1 dose, Pre-op (day of surgery) 1600 (Due) famotidine (PEPCID) 20 mg in sodium chloride (PF) 10 mL injection 20 mg, IntraVENous, ONCE, On Thu09/30/21 at 1600, For 1 dose, Administer over 2 minutes., Pre-op (day of surgery) 1600 (Due) scopolamine (TRANSDERM-SCOP) transdermal patch 1 patch 1 patch, TransDERmal, Administer over 72 Hours, ONCE, On Thu09/30/21 at 1600, For 1 dose, 1.5 mg patch delivers 1 mg over 3 days. Apply patch to hairless area behind the ear., Pre-op (day of surgery) 1600 (Due) sodium chloride flush 0.9 % injection 10 mL 10 mL, IntraVENous, EVERY 12 HOURS SCHEDULED (2 times per day), First dose on Thu09/30/21 at 2100, Pre-op (day of surgery) 2100 (Due) sodium chloride flush 0.9 % injection 5-40 mL 5-40 mL, IntraVENous, EVERY 12 HOURS SCHEDULED (2 times per day), First dose on Thu09/30/21 at 2100, For Line Patency: Peripheral IV = 5 mL; Midline or Central Line = 10 mL/lumen. If following IV push medication, administer flush at same rate as the IV push. Flush volume is determined by type of infusion therapy being given. For non-viscous solutions use: Peripheral IV = 5 mL Midline or Central Line = 10 mL/lumen For viscous solutions (i.e. blood components, parenteral nutrition, contrast media, or after obtaining blood sample) use: Peripheral IV = 10 mL Midline or Central Line = 20 mL/lumen, PACU only 2100 (Due) Continuous Medication Order 09/28/2021 09/29/2021 09/30/2021 lactated ringers infusion IntraVENous, at 100 mL/hr, CONTINUOUS, Starting on Thu09/30/21 at 1600, Pre-op (day of surgery) 1600 (Due) PRN Medication Order 09/28/2021 09/29/2021 09/30/2021 0.9 % sodium chloride infusion 25 mL, IntraVENous, at 100 mL/hr, PRN, If patient receiving piggyback infusions without ordered maintenance IV fluids or with frequent/long duration piggyback infusions, Starting on Thu09/30/21 at 1531, Administer at the same rate as the piggyback being infused., Pre-op (day of surgery) 0.9 % sodium chloride infusion 25 mL, IntraVENous, at 100 mL/hr, PRN, If patient receiving piggyback infusions without ordered maintenance IV fluids or with frequent/long duration piggyback infusions, Starting on Thu09/30/21 at 1131, Administer at the same rate as the piggyback being infused., PACU only balanced salts plus (BSS) ophthalmic solution (CANCELED) PRN, Starting on Thu09/30/21 at 1245, Intra-op 1245 (Given - Provid er: Damon Jones MD - Comment: TO THE BACK TABLE) bupivacaine-EPINEPHrine (MARCAINE-w/EPINEPHRINE) 0.5% -1:[id number] injection (CANCELED) PRN, Starting on Thu09/30/21 at 1247, Intra-op 1247 (Given - Provid er: Damon Jones MD - Comment: NOSE INJECTED PRIOR TO PREP) diphenhydrAMINE (BENADRYL) injection 12.5 mg 12.5 mg, IntraVENous, ONCE PRN, Itching, Starting on Thu09/30/21 at 1131, For 1 dose, PACU only gentian maribel 1 % topical solution (CANCELED) PRN, Starting on Thu09/30/21 at 1245, Intra-op 1245 (Given - Provid er: Damon Jones MD - Comment: TO THE BACK TABLE) HYDROmorphone (DILAUDID) injection 0.5 mg 0.5 mg, IntraVENous, EVERY 5 MIN PRN, Pain Severe (7-10), Starting on Thu09/30/21 at 1131, For 4 doses, Phase I - Initial therapy for severe pain., PACU only ipratropium-albuterol (DUONEB) nebulizer solution 1 ampule 1 ampule, Inhalation, ONCE PRN, Shortness of Breath, Starting on Thu09/30/21 at 1131, For 1 dose, PACU only labetalol (NORMODYNE;TRANDATE) injection syringe 10 mg 10 mg, IntraVENous, EVERY 15 MIN PRN, High Blood Pressure, for SBP greater than 180 mmHg for 2 consecutive measurements taken from different sites., Starting on Thu09/30/21 at 1131, For 2 doses, Inform provider if SBP is still greater than 180 mmHg, 10 minutes after second antihypertensive dose is administered., PACU only lidocaine PF 1 % injection 1 mL 1 mL, IntraDERmal, ONCE PRN, IV start, Starting on Thu09/30/21 at 1531, For 1 dose, Pre-op (day of surgery) meperidine (DEMEROL) injection 12.5 mg 12.5 mg, IntraVENous, EVERY 5 MIN PRN, Shivering, , Starting on Thu09/30/21 at 1131, May give every 5 minutes to max of 25mg., PACU only midazolam PF (VERSED) injection 2 mg 2 mg, IntraVENous, ONCE PRN, Anxiety, Starting on Thu09/30/21 at 1131, For 1 dose, PACU only morphine (PF) injection 2 mg 2 mg, IntraVENous, EVERY 5 MIN PRN, Pain Moderate (4-6), Starting on Thu09/30/21 at 1131, For 10 doses, Phase I - Initial therapy for moderate pain., PACU only ondansetron (ZOFRAN) injection 4 mg (COMPLETED) 4 mg, IntraVENous, ONCE PRN, Nausea, Starting on Thu09/30/21 at 1131, For 1 dose, PACU only 1531 (Given - Provid er: Gilma Stern RN) oxyCODONE-acetaminophen (PERCOCET) 5-325 MG per tablet 1 tablet 1 tablet, Oral, ONCE PRN, Pain Moderate (4-6), Starting on Thu09/30/21 at 1131, For 1 dose, Maximum dose of acetaminophen is 4000 mg from all sources in 24 hours., PACU only oxyCODONE-acetaminophen (PERCOCET) 5-325 MG per tablet 2 tablet 2 tablet, Oral, ONCE PRN, Pain Severe (7-10), Starting on Thu09/30/21 at 1131, For 1 dose, Maximum dose of acetaminophen is 4000 mg from all sources in 24 hours., PACU only promethazine (PHENERGAN) injection 6.25 mg 6.25 mg, IntraMUSCular, EVERY 5 MIN PRN, Nausea, Starting on Thu09/30/21 at 1131, For 2 doses, Recommended route is IM. Caution if used IV. Check IV site for infiltrate prior to and during administration. Secondary Antiemetic therapy. Product instructions: For IV administration, dilute to 10 ml with normal saline. Must be administered over at least 10 minutes., PACU only sodium chloride 0.9 % 150 mL with lidocaine-EPINEPHrine 50 mL (CANCELED) PRN, Starting on Thu09/30/21 at 1255, Intra-op 1255 (Given - Provid er: Damon Jones MD) sodium chloride flush 0.9 % injection 10 mL 10 mL, IntraVENous, PRN, Line Care, After every IV line use, Starting on Thu09/30/21 at 1531, Pre-op (day of surgery) sodium chloride flush 0.9 % injection 5-40 mL 5-40 mL, IntraVENous, PRN, Line Care, After every IV line use, Starting on Thu09/30/21 at 1131, For Line Patency: Peripheral IV = 5 mL; Midline or Central Line = 10 mL/lumen. If following IV push medication, administer flush at same rate as the IV push. Flush volume is determined by type of infusion therapy being given. For non-viscous solutions use: Peripheral IV = 5 mL Midline or Central Line = 10 mL/lumen For viscous solutions (i.e. blood components, parenteral nutrition, contrast media, or after obtaining blood sample) use: Peripheral IV = 10 mL Midline or Central Line = 20 mL/lumen, PACU only No Frequency Medication Order 09/28/2021 09/29/2021 09/30/2021 aprepitant (EMEND) 40 MG capsule (COMPLETED) Starting on Thu09/30/21 at 1131, For 1 dose, Adrienne Shankar: cabinet override 1133 (Given - Provid er: Adrienne Shankar RN) balanced salts plus (BSS) ophthalmic solution Starting on Thu09/30/21 at 1248, For 1 dose, Carolin Denise: cabinet override 1300 (Due) bupivacaine-EPINEPHrine (MARCAINE-w/EPINEPHRINE) 0.5% -1:425316 injection Starting on Thu09/30/21 at 1239, For 1 dose, Carolin Denise: cabinet override 1245 (Due) ceFAZolin (ANCEF) IVPB Starting on Thu09/30/21 at 1131, For 1 dose, Adrienne Shankar: cabinet override 1145 (Due) famotidine (PEPCID) 20 MG/2ML injection (COMPLETED) Starting on Thu09/30/21 at 1131, For 1 dose, Adrienne Shankar: cabinet override 1133 (Given - Provid er: Adrienne Shankar RN) gentian maribel 1 % topical solution Starting on Thu09/30/21 at 1039, For 1 dose, Carolin Denise: cabinet override 1045 (Due) Lidocaine-EPINEPHrine 0.5 %-1:379684 solution SOLN Starting on Thu09/30/21 at 1042, For 1 dose, Carolin Denise: cabinet override 1045 (Due) lidocaine-EPINEPHrine 1 %-1:725216 injection Starting on Thu09/30/21 at 1039, For 1 dose, Carolin Denise: cabinet override 1045 (Due) lidocaine-EPINEPHrine 1 %-1:265789 injection Starting on Thu09/30/21 at 1045, For 1 dose, Carolin Denise: cabinet override 1100 (Due) scopolamine (TRANSDERM-SCOP) 1 MG/3DAYS transdermal patch (COMPLETED) Starting on Thu09/30/21 at 1131, For 1 dose, Adrienne Shankar: cabinet override 1132 (Patch Applied - Provider: Adrienne Shankar RN) sodium chloride (PF) 0.9 % injection Starting on Thu09/30/21 at 1042, For 1 dose, Carolin Denise: cabinet override 1045 (Due) thrombin (recombinant) (RECOTHROM) 5000 units Starting on 09/30/21 at 1329, For 1 dose, Marco Frederick: cabinet override 1330 (Due) INFORMATION SOURCE (unrecogn ized section and content) DATE CREATED AUTHOR 10/02/2021 [facility] DATE CREATED AUTHOR AUTHOR'S ORGANIZ ATION 03/06/2022 [facility] DATE CREATED AUTHOR AUTHOR'S ORGANIZ ATION 09/27/2023 [facility] DATE CREATED AUTHOR AUTHOR'S ORGANIZ ATION 10/20/2024 [facility] DATE CREATED AUTHOR AUTHOR'S ORGANIZ ATION 11/29/2024 [facility] DATE CREATED AUTHOR AUTHOR'S ORGANIZ ATION 01/01/2025 [facility] REASON FOR VISIT (unrecogniz ed section and content) Reason Comments Annual Exam Reason Comments Anxiety Reason Comments Suture / Staple Removal Reason Comments Poison Cathy Goals (unrecognized section and content) Goals may be documented in a n alternate section FOR RECORDS PERTAINING TO PATIENTS WHO ARE OR HAVE BEEN ENROLLED IN A CHEMICAL DEPENDENCY/SUBSTANCEABUSE PROGRAM, SOME INFORMATION MAY BE OMITTED. This clinical summary was aggregated from multiple sources. Caution should be exercised in using it in the provision of clinical care. This summary normalizes information from multiple sources, and as a consequence, information in this document may materially change the coding, format and clinical context of patient data. In addition, data may be omitted in some cases. CLINICAL DECISIONS SHOULD BE BASED ON THE PRIMARY CLINICAL RECORDS. [facility] [employer] provides no warranty or guarantee of the accuracy or completeness of information in this document.
== END 2025-02-24 10:45 | disposition home or self-care (01) ==
LOC: MAMMO 10:49
PROVIDERS: PCP Nurse Practitioner Family; Visit Provider Nurse Practitioner Family
DX: Z12.31 Encounter for screening mammogram for malignant neoplasm of breast (principal)
CPT/HCPCS: 77063; 77067